=== PATIENT | female | born 1985 | race Caucasian/White ===

== ENCOUNTER → 2019-09-05 10:30 | Outpatient (BNVA) | payer OTHER, SELFPAY | PROVIDERS: Family Provider Family Medicine; PCP Family Medicine; Visit Provider Obstetrics & Gynecology | DX: N93.9 Abnormal uterine and vaginal bleeding, unspecified (principal); Z30.9 Encounter for contraceptive management, unspecified | CPT/HCPCS: 84443 ==

== ENCOUNTER → 2020-02-03 15:32 | Outpatient (BNVA) | payer OTHER, SELFPAY | PROVIDERS: PCP Family Medicine; Visit Provider Family Medicine | DX: Z20.828 Contact with and (suspected) exposure to other viral communicable diseases (principal) | CPT/HCPCS: 85025; 87635 ==

== ENCOUNTER 2020-02-09 10:01 | Observation (INO) | payer OTHER, SELFPAY ==
[2020-02-03 12:23] VITALS: BMI 31.6
--- NOTE | 2020-02-03 12:55 | ANES.PREANE2 ---
Pre-Anesthetic Assessment Pre-Anesthetic Assessment: Height/Weight: Height 1.65 m Weight 86.183 kg Preop Diagnosis: Pelvic pain Proposed Procedure: Operation Date: 02/09/20 07:00 Proposed Procedures p Laparoscopic Assist Vaginal Hystectomy 97908 N94.10(Not Applicable) - Caitlin Olsen MD s Left Laparoscopic Salpingo Oophorectomy(Left) - Caitlin Olsen MD Familial anesthetic complications: None Social: Social History: Tobacco and No alcohol Exam: Pre-Anes Outpt Exam: alert, oriented x 3, clear to auscultation bilaterally and regular rate & rhythm Airway: Cervical ROM: WNL MP: 3 Dentition: Full Pulmonary: Pulmonary: None reported CV/HEM: CV/HEM: HTN Neuropsych: Neuropsych: Depression Anesthetic Plan: ASA status: 2 Anesthesia: General Risk of > 500 ml blood loss (7ml/kg in children): No PFSH Anesthesia PFSH: Medical History Hypertension Diagnosed in 2018 and she has been on lisinopril managed by her primary care provider Dr. Waters Mood changes Controlled on Prozac managed by Dr. Waters. No pertinent past medical history Denies history of: Diabetes, asthma, seizures, DVT/PE. PCP: Dr. Waters Surgical History S/P right oophorectomy (~01/20/19) 01/20/2019---laparoscopic right salpingo-oophorectomy for chronic right lower quadrant pain and dyspareunia.performed by Dr. Coreas at [facility]. No endometriosis or adhesions noted, uterus and bilateral tubes and ovaries appeared normal. -Pathology showed simple cortical cysts and corpus luteum and benign fallopian tube. S/P wisdom tooth extraction (~2003) Status post lumpectomy of both breasts (~06/2018) 06/2018---Bilateral breasts; benign. Performed by Dr. Fontana at the [facility]. Family History Grandfather Hypertension maternal and paternal Colon cancer paternal Diabetes maternal; bone cancer Grandmother Diabetes Paternal great grandmother Hypertension maternal and paternal Breast cancer paternal great grandmother Mother Hypertension Hyperlipidemia Father Hypertension Hyperlipidemia Family/Other Breast cancer Paternal great aunt Other Cancer Denies family history of Cervical cancer Ovarian cancer DVT (deep venous thrombosis) Pulmonary embolism Uterine cancer Stroke Social History Smoking and tobacco status: former smoker Alcohol intake: unknown Female Reproductive History: Date of last menstrual period: 02/03/20 Data Anesthesia CBC & Chem 7: 02/03/20 12:36 Cardiac Studies: No Data to Display
[2020-02-03 12:58] LABS: Basophils # 0.1 10^3/uL (0.0-0.1); Basophils % 0.9 %; Eosinophils # 0.2 10^3/uL (0.0-0.8); Eosinophils % 1.8 %; Hematocrit 43.9 % (37.0-47.0); Hemoglobin 14.4 g/dL (11.5-15.3); Lymphocytes # 3.7 10^3/uL (0.8-4.8); Lymphocytes % 37.3 %; Mean Corpuscular HGB Conc 32.8 g/dL (30.0-36.0); Mean Corpuscular Hemoglobin 32.3 pg (28.0-34.0); Mean Corpuscular Volume 98.4 fL (81-99); Mean Platelet Volume 9.7 fL (7.4-10.4); Monocytes # 0.5 10^3/uL (0.2-0.9); Monocytes % 5.3 %; Neutrophils # 5.42 10^3/uL (1.8-7.7); Neutrophils % 54.3 %; Nucleated Red Blood Cells % 0 %; Platelet Count 395 10^3/cmm (130-400); Red Blood Count 4.46 10^6/uL (4.1-5.3); Red Cell Distribution Width 11.8 % (12.1-15.1)
[2020-02-09] VITALS (25 sets, daily range): BP systolic 76–128; BP diastolic 41–85; PULSE 6–95; RESP 12–25; TEMP 36.5–37.1; O2SAT 88–99
[2020-02-09] MEDS: sodium chloride 0.9% 1,000 ML 30 ML IV ×2 (06:32→10:36)
[2020-02-09 06:48] LABS: OR HCG Qualitative Urine Negative (Negative)
--- NOTE | 2020-02-09 06:56 | P.ANESUD_ITS ---
Pre-Anesthetic Update Pre-Anesthetic Assessment: Date of Surgery/Procedure: 02/09/20 Preop Karina gnosis: Pelvic pain Proposed Procedure: Operation Date: 02/09/20 07:00 Proposed Procedures p Laparoscopic Assist Vaginal Hystectomy 13603 N94.10(Not Applicable) - Caitlin Olsen MD s Laparoscopic Salpingectomy(Left) - Caitlin Olsen MD Any changes to Pre-Anesthetic Assessment?: No Last Intake: Intake Last Liquid Date 02/08/20 Last Liquid Time 23:00 Last Solid Date 02/08/20 Last Solid Time 18:30 Labs Last 48hrs: Laboratory Results - last 48 hr 02/09/20 05:50 Urine HCG, Qual Negative Vitals: Temperature 97.7 F 02/09/20 05:57 Temperature Source Temporal Artery S can 02/09/20 05:57 Pulse Rate 86 02/09/20 05:57 Respiratory Rate 18 02/09/20 05:57 Blood Pressure 109/71 02/09/20 05:57 Blood Pressure Jenniffer n 83 02/09/20 05:57 Pulse Oximetry 94 02/09/20 05:57 Oxygen Delivery Me thod 02/09/20 05:57 Exam: Pre-Anes Outpt Exam: alert, oriented x 3, clear to auscultation bilaterally and regular rate & rhythm Cardiac Studies: No Data to Display
--- NOTE | 2020-02-09 06:57 | P.HPUD_ITS ---
Surgery/Procedure H&P Update DATE OF PROCEDURE: February 09, 2020 DATE H&P PERFORMED: 01/17/20 H&P UPDATE INFORMATION: I have reviewed H&P completed within last 30 days, I have examined patient prior to procedure, No changes to prior documentation and H&P is in [facility] EMR on date indicated PREOP DIAGNOSIS: Pelvic pain, dyspareunia PLANNED PROCEDURE: Operation Date: 02/09/20 07:00 Proposed Procedures p Laparoscopic Assist Vaginal Hystectomy 10066 N94.10(Not Applicable) - Caitlin Olsen MD s Laparoscopic Salpingectomy(Left) - Caitlin Olsen MD
--- NOTE | 2020-02-09 07:50 | SUR.OPER ---
Family Notified Of Patient's Status Via Phone.
[2020-02-09] MEDS: vasopressin 20 unit/mL INJ INJECTION (09:09)
--- NOTE | 2020-02-09 10:01 | P.OP_ITS ---
Operative Report Date of procedure: February 09, 2020 OPERATIVE REPORT Date of surgery:02/09/2020 Date of dictation: 02/09/2020 Preoperative diagnosis: Dyspareunia, chronic pelvic pain Postoperative diagnosis/findings: Normal uterus and normal left tube and ovary, on examination under anesthesia 6-week size anteverted uterus, no adnexal masses, grade 0-1 cystocele uterine prolapse and rectocele. Procedure done: Laparoscopic assisted vaginal hysterectomy, left salpingectomy, cystoscopy Specimens removed/disposition of specimens: Uterus, cervix, left fallopian tube Surgeon: Dr. Caitlin Coreas administrative services assistant: Justine Anesthesia: General endotracheal tube anesthesia Estimated blood loss: 150 ml Intravenous fluids: 1500 mL of LR Urine output: 500 mL of clear urine at the end of procedure Medications: As per anesthesia records Complications: None, patient was extubated and taken to the recovery room in a stable condition PROCEDURE: After consents were obtained, she was taken to the operating room where she was placed under general endotracheal tube anesthesia without any difficulty. She was placed supine on the table in lithotomy position. Her legs were placed in stirrups and care was taken to avoid pressure points. Exam under anesthesia revealed 6-week size anteverted uterus, mobile, no adnexal masses, grade 0-1 ut erine, cystocele and rectocele. She was then prepped and draped in usual sterile fashion. Weighted speculum and anterior wall retractors were placed in the vagina, cervix visualized and grasped with a tenaculum. ZUMI uterine manipulator was placed into the uterus without any difficulty. Gee Catheter was placed, instruments were removed from the vagina and the legs were lowered. Attention was turned towards the abdomen where half percent Marcaine with epinephrine was injected in to her umbilicus. A 10 mm skin incision was made and a 10 mm port was placed through the umbilicus using an open Lipscomb technique. Once intra-abdominal entry was confirmed gas was turned on and intra-abdominal opening pressure was 2. The abdomen is insufflated until the pressure was 13. Survey of the abdomen no injury at site of entry, normal left fallopian tube and ovary and uterus, no obvious lesions identified.. No other gross abnormality were identified. Two 5 mm trocar was placed into the right and left lower quadrant under direct visualization after injecting Marcaine. A 5 mm Voyant was introduced into the abdomen and the left mesosalpinx was clamped, cauterized x3 and then cut. No bleeding was noted. The Voyant was used clamp cauterize and then cut the broad ligament under the fallopian tube and proceeding inferiorly just lateral to the uterus. The ovarian ligament on the left side was also clamped cauterized and cut. Good hemostasis was achieved. The round ligament was also clamped, cauterized and cut. In this way the left fallopian tube left side of the uterus was from the parametria. This was continued to the level just above the cervix. The same procedure was repeated on the right side and the right round ligament, parametria was clamped cauterized and cut the right side of the uterus from the sidewall . Care was taken to identify the ureter and stay away from this. Good hemostasis was noted.The right-side of the uterus was thus freed from the parametria in a similar fashion. The ureters were visualized bilaterally well away from site of surgery. Next the anterior bladder flap was created and the bladder was pushed down. The uterine artery on both sides were visualized, clamped and cauterized. Survey of surgery sites showed hemostasis. At this point all instruments were taken out of the abdomen, gas was turned off, abdomen was covered with a sterile drape and attention was turned towards the vagina. Patient's legs were raised, weighted speculum placed and cervix was grasped on the anterior and posterior lips with single-toothed tenaculum. 4 Units of Pitressin diluted in 10 mL of saline was injected around the cervix for hydrodissection on all sides. A scalpel was used to make an incision starting posteriorly and then extending anteriorly around the cervix. Hanson scissors was then used to separate the overlying tissue from the cervix. The overlying tissue was also pushed back bluntly using a 4 x 4 gauze. Attention was turned p osteriorly where pickups with teeth and Metzenbaum scissors was used to grasp the peritoneum and peritoneal cavity was entered. This peritoneal incision was extended laterally using the Metzenbaum scissors. A long weighted speculum was placed intraperitoneally thus protecting the rectum. Armando-Bynum clamps were used first on the right and then the left to clamp and then cut the paracervical tissue. Then we clamped, cut and sutured both right and left uterosacral ligaments with a Armando clamp. This process was repeated again proceeding up the cervix. The bladder was held up, peritoneum was identified and intraperitoneal entry anteriorly was made. A vaginal retractor was placed into the peritoneum thus protecting the bladder from site of surgery. Care was taken to stay medial and to avoid the bladder. The next bite that was placed clamped and then cut the already cauterized uterine artery on the right and then on the left side. These pedicles were were tied and the stitches were cut. Good hemostasis was achieved. With this, the uterus, bilateral tubes and ovaries, was freed, taken out and sent to pathology. The pedicles in the pelvis was visualized and good hemostasis was noted. The posterior vaginal cuff was noted to be bleeding and was oversewn , attaching the peritoneum to the vaginal cuff with 0 Vicryl in a continuous interlocking fashion. Good hemostasis was achieved. Cystoscopy was performed with a 70? cystoscope and bilateral ureteral jets were visualized x 2 as well as no suture , lesion or defect was noted in the bladder wall or urethra. Cystoscope was removed, bladder drained and Gee catheter was replaced. The angles of the vaginal cuff were grasped with Allis clamps and the angles were held in place. 0 Vicryl was used to close the vaginal cuff in a horizontal fashion using interrupted [id number] sutures. The vaginal cuff was closed and no defects were noted attention was turned to the Vicryl sutures holding the uterosacral ligaments. The sutures were right and left uterosacral ligaments were tied together thus suspending the apex of the vagina. Good support was noted. Attention was turned towards the abdomen at this time and patient's legs were lowered. Abdomen was insufflated to a pressure of 13 and the camera was placed in the abdomen. Sites of surgery were visualized and were noted to be hemostatic. The vaginal cuff was intact and no bowel or omentum was noted to be involved with the vaginal cuff suture line. Surgicel was placed over the vaginal cuff. Good hemostasis was noted. All instruments removed from the abdomen and the abdomen was desufflated. Trochars were removed with the blunt probe in place. The fascia on the umbilicus was closed with 0 Vicryl on a UR needle and good approximation was obtained. The skin incision on all 3 ports was closed with 4-0 Monocryl in a subcuticular fashion. Good reapproximation and hemostasis was noted. Marcaine was injected on the port sites. The incisions were dressed with Steri-Strips, Telfa and Tegaderm. 1 inch vaginal packing with lubrication was placed into the vagina. A Gee catheter was kept in place. The patient was extubated without any difficulty and taken to the recovery room in a stable condition. Pre-op Diagnosis: Pelvic pain, dyspareunia
--- NOTE | 2020-02-09 10:16 | SUR.PHASEI ---
1002 PATIENT TO PACU FROM OR. C/O PAIN 09/10. 3 INCISIONS TO ABDOMEN, CDI. CONTRERAS CATH IN PLACE.
[2020-02-09] MEDS: ondansetron 2 mg/ML SDV 2 mL 4 MG IVP ×4 (10:19→21:09)
[2020-02-09] MEDS: fentaNYL 50 mcg/mL INJ 2mL IVP ×2 (10:24→10:33)
--- NOTE | 2020-02-09 10:40 | PM.PACU ---
PACU note Post-Anesthesia Exam: awake and vital signs stable Disposition: admitted
--- NOTE | 2020-02-09 11:05 | SUR.PHASEI ---
1046 PATIENT TO MED SURG. NAUSEA AND PAIN IMPROVED. 3 INCISIONS TO ABDOMEN, CDI. PATIENT AMBULATORY FROM [facility] TO BED WITH STEADY GAIT. CONTRERAS CATH IN PLACE, DRAINING CLEAR YELLOW URINE.
[2020-02-09] MEDS: HYDROmorphone 1 mg/mL INJ 1 mL IVP ×3 (11:14→20:59)
[2020-02-09] MEDS: simethicone 80 mg Chew PO (11:14)
[2020-02-09] MEDS: dextrose 5%-lactated ringers 1,000 ML 125 ML IV ×2 (11:14→19:16)
[2020-02-09] MEDS: HYDROcodone-acetaminophen 5-325 mg Tablet PO ×2 (12:33→18:41)
--- NOTE | 2020-02-09 13:18 | PC.NURSE ---
I reported the low 02 to the nurse. 2 liters applied
[2020-02-09] MEDS: acetaminophen 325 mg Tablet 650 MG PO (17:43)
[2020-02-09] MEDS: docusate sodium 100 mg Capsule PO (17:43)
--- NOTE | 2020-02-09 19:20 | PC.NURSE ---
SHIFT SUMMARY Patient has done well since received from surgery, vs stable. patient has received iv and po pain medications. hurtado catheter in place and urine output has been approximately 1200 since 1130 am, clear dark yellow in appearance. Dr. Coreas gave telephone orders for patient's vaginal packing to be removed, this nurse removed packing at 1700. pt has ambulated 325ft with staff and has sat up in the chair after surgery. she is resting in bed watching tv at this time, call light within reach.
[2020-02-10] VITALS (7 sets, daily range): BP systolic 101–117; BP diastolic 62–80; PULSE 70–93; RESP 17–20; TEMP 36.6–36.9; O2SAT 92–97
[2020-02-10] MEDS: HYDROcodone-acetaminophen 5-325 mg Tablet PO ×2 (00:36→09:04)
[2020-02-10] MEDS: diphenhydrAMINE 25 mg Capsule PO ×2 (00:41→04:49)
[2020-02-10] MEDS: dextrose 5%-lactated ringers 1,000 ML 125 ML IV ×2 (02:55→09:05)
[2020-02-10] MEDS: ondansetron 2 mg/ML SDV 2 mL 4 MG IVP (03:20)
[2020-02-10] MEDS: HYDROmorphone 1 mg/mL INJ 1 mL IVP (03:20)
--- NOTE | 2020-02-10 06:44 | P.DS_ITS ---
Discharge Providers Date of Admission: 02/09/20 10:01 Date of Discharge: February 10, 2020 Attending Provider at Admission: Caitlin Olsen MD Attending Provider at Discharge: Caitlin Olsen MD Primary Care Provider: Jose Waters MD Reason for Visit Reason for Visit: laparoscopic assisted vaginal hysterectomy with le Hospital Course Discharge Summary: Date of surgery:02/09/2020 Preoperative diagnosis: Dyspareunia, chronic pelvic pain Postoperative diagnosis/findings: Normal uterus and normal left tube and ovary, on examination under anesthesia 6-week size anteverted uterus, no adnexal masses, grade 0-1 cystocele uterine prolapse and rectocele. Procedure done: Laparoscopic assisted vaginal hysterectomy, left salpingectomy, cystoscopy Specimens removed/disposition of specimens: Uterus, cervix, left fallopian tube Hospital course: She underwent an uncomplicated surgery as described above on 02/09/2020. Please refer to operative report for details of surgery.. She did well on postoperative day 0 and was ambulating well, tolerating clear liquid diet. Pain was well- controlled with by mouth and IV pain medication. She denied nausea, vomiting, fever, chills, shortness of breath, leg pain. She had minimal vaginal bleeding. Gee catheter was kept overnight and she had adequate urine output. On postoperative day #1 she continued to do well with stable vital signs and stable hemoglobin at 11.5. Gee catheter was removed and patient was able to void with minimal residual noted on bladder scan. She ambulated well started passing flatus and then tolerated a regular diet. Incisions appear clean dry and intact. She was discharged home on postoperative day #1 in a stable condition. Warning signs for wound infection, cuff infection, DVT/PE were reviewed with her. Post surgical activity restrictions were also reviewed with her at all her questions were answered to her satisfaction. Follow-up in 2 weeks in 6 weeks for postoperative visit. Physical Exam Urinary Catheter Management^: F: Cath Placed During This Visit: yes Urinary Catheter Date of Insertion: 02/09/20 Urinary Catheter Time of Insertion: 07:30 Discharge Data Data Completed and Pending: Pending at discharge Category Date Time Status ES surgery / GI i mages Routine Exams 02/09/20 06:37 Taken Hemagram Timed Lab 02/10/20 04:50 Ordered Pathology: Surgic al [PTH] Routine Pth 10/08/20 09:07 Received Labs from last 24 hours 02/09/20 02/09/20 06:20 05:50 Urine HCG, Qual Negative Blood Type A Positive Rho(D) Type Positive Antibody Screen Negative Vitals: Last Vital Signs Temp 98.4 F 02/10/20 05:20 Pulse 76 02/10/20 05:20 Resp 18 02/10/20 05:20 BP 102/62 02/10/20 05:20 Pulse Ox 92 02/10/20 05:20 Discharge Plan Discharge Patient Disposition: Home Condition: Stable Prescriptions: New ibuprofen 800 mg tablet 800 mg PO Q8H Qty: 30 RF: 0 hydrocodone-acetaminophen 5-325 mg tablet 1 tab PO Q6H Qty: 25 RF: 0 docusate sodium 100 mg Capsule 100 mg PO BID PRN (Reason: constipation) Qty: 30 RF: 0 Continued lisinopril 10 mg tablet 10 mg PO DAILY RF: 0 fluoxetine [Prozac] 40 mg capsule 40 mg PO DAILY RF: 0 Discontinued ibuprofen 800 mg tablet 800 mg PO Q8H PRN (Reason: Pain) RF: 0 Discharge Orders: Discharge Order (Routine); Ordered 02/10/20 Ordered By: Caitlin Olsen Referrals: Caitlin Olsen MD [Physician] - (2 and 6 week post op---pt has appointments already) Patient Instructions: Hydrocodone/Acetaminophen (By mouth), Ibuprofen (By mouth), Laxative, Stool Softeners (By mouth), OB Discharge Report, OB Laproscopic Surgery - [facility], OB Food/Drug Interaction Guide Activity Restrictions/Additional Instructions: pelvic rest for 6 weeks- no heavy lifting for 6 weeks Discharge Date/Time: 02/10/20 19:55 Discharge Attestations Time Spent in Discharge Care*: greater than 30 min Quality Metrics Clinical Quality Measures During this hospital stay, did patient experience: None Coding Level of Care Code Acute Client Experience Administrator for Alvin Foley
[2020-02-10 07:54] LABS: Hematocrit 37.9 % (37.0-47.0); Hemoglobin 12.1 g/dL (11.5-15.3); Mean Corpuscular HGB Conc 31.9 g/dL (30.0-36.0); Mean Corpuscular Hemoglobin 32.2 pg (28.0-34.0); Mean Corpuscular Volume 100.8 fL (81-99); Mean Platelet Volume 9.8 fL (7.4-10.4); Platelet Count 275 10^3/cmm (130-400); Red Blood Count 3.76 10^6/uL (4.1-5.3); Red Cell Distribution Width 11.9 % (12.1-15.1); White Blood Count 16.5 10^3/uL (4.0-10.0)
[2020-02-10] MEDS: docusate sodium 100 mg Capsule PO ×2 (09:05→16:17)
--- NOTE | 2020-02-10 09:07 | PC.NURSE ---
patient ambulated in halls. made 4 laps around nurses station. Patient states pain is a 7/10. gave2 hydro
--- NOTE | 2020-02-10 10:50 | PC.NURSE ---
0735 - 1st void on AM shift - 400ml - bladder scan shows less that 50ml, 1030am 2nd void 300ml bladder scan shows less than 60ml. Dr. Coreas notified and states patient passes post void. SMW, BUSINESS SUPPORT COORDINATOR
[2020-02-10] MEDS: ibuprofen 800 mg tablet PO ×2 (11:13→19:02)
--- NOTE | 2020-02-10 11:34 | PC.NURSE ---
Patient ambulating in hallway. Has made a total of 12 laps thus far and is still ambulating. Positive bowel sounds assculated but patient reports no gas yet. SMW, BUFFER AUTOMATIC
--- NOTE | 2020-02-10 13:56 | PC.NURSE ---
Patient ambulating in [place] at this time. COURTNEYW, SAND PLANT ATTENDANT
[2020-02-10] MEDS: HYDROcodone-acetaminophen 5-325 mg Tablet 1 TAB PO (14:57)
--- NOTE | 2020-02-10 14:58 | PC.CHAP ---
Pastoral Care Encounter/Spiritual Assessment Type of Contact [] Declined washroom operator visit [] Patient/Family/Request visit [] Outpatient visit [] Follow-up visit [] Physician referral [] Code/Alert [] Routine visit [] Staff referral [] Actively dying [] Patient sleeping [] Family support [] [x] Out of room [] Palliative care [] [] Receiving care in room [] Pre-surgical visit [] Trauma [] Long length of stay [] ICU visit [] Other: Relational/Emotional Strength [] Patient feels connected with others/family/visitors/staff [] Distress [] Loneliness/isolation [] Abandonment Spirituality of Patient [] Person of Miya [] Attends Anglican of their Miya [] Believes in Prayer [] Reads Bible or Buddhist materials [] There are Spiritual issues to be addressed Watch Dial Stoner Interventions [] Prayer [] Active listening [] Non-anxious presence [] Spiritual/emotional support [] Crisis/trauma care [] Spiritual counseling [] Bereavement support [] Provided bereavement packet [] Provided Bible/devotional materials [] Provided toy/stuffed animal, coloring book to patient or family member [] Provided Communion [] Anointing/[place] [] Salvation [] Completed spiritual assessment [] Other: Impact on Illness or Injury [] Angry [] Fearful [] Anxious [] Often cries [] Exhaustion [] Unable to work [] Unable to attend moravian [] Unable to walk/stand [] Unable to read [] Unable to drive [] Unable to eat/drink [] Unable to sleep [] Unable to be with family [] Patient intubated [] Other: Summary Patient was not in the room at the time of the washroom operator visit. Patient visit was attempted by Watch Dial Stoner Coy Canseco. Time spent with patient 3 minutes
== END 2020-02-10 19:55 | disposition home or self-care (01) ==
LOC: MEDSURG 10:02 → OBGYN 02-10 17:26
PROVIDERS: Anesthesiology; Admitting Provider Obstetrics & Gynecology; PCP Family Medicine; Visit Provider Obstetrics & Gynecology
PROC: 0UT9FZZ Resection of Uterus, Via Natural or Artificial Opening With Percutaneous Endoscopic Assistance (ICD-10-PCS; CPT 58552; principal; 2020-02-09 07:00)
PROC: (CPT 58661; 2020-02-09 07:00)
DX: R10.2 Pelvic and perineal pain (principal); G89.29 Other chronic pain; N94.10 Unspecified dyspareunia; I10 Essential (primary) hypertension; F17.210 Nicotine dependence, cigarettes, uncomplicated
CPT/HCPCS: 58552; 12345; 36415; 81025; 84703; 85027; 86850; 86900; 88307; 96361; 96365; 96375; G0378; J0131; J0690; J1100; J1170; J2370; J2405; J2704; J2710; J3010; J3490; J7030

== ENCOUNTER 2022-09-14 06:57 | Emergency (ER) | payer OTHER, SELFPAY ==
[2022-09-14 07:05] VITALS: BP 144/115; PULSE 123; RESP 17; TEMP 36.6; O2SAT 95; BMI 33.3
--- NOTE | 2022-09-14 07:13 | ED_ITS ---
HPI - Nausea/Vomiting/Diarrhea General: Chief complaint: Nausea/Vomiting/Diarrhea Stated complaint: n/v Time Seen by Provider: 09/14/22 07:03 Source: patient Mode of arrival: ambulatory Limitations: no limitations History of Present Illness: Patient presents to the emergency department today accompanied by her mother for evaluation treatment of epigastric abdominal pain, diarrhea, and vomiting. Antoinette ent reports being woken out of her sleep at approximately 10 PM last night. She states since that time she has had near consistent watery diarrhea, abdominal cramping with epigastric pain, and vomiting. Patient states she is feeling extremely thirsty but, reports any p.o. intake results in both diarrhea and vomiting. Patient has not recorded fever at home but has had some chills through the night. She denies dysuria or back pain. She denies any recent illness of cough, congestion, or sore throat. She does indicates she had a tick bite several days ago and, has a history of [place] spotted fever several years ago with resulting alpha-gal. Her mother also mentions that the patient has been hospitalized in the past for urosepsis without urinary symptoms present. Patient denies any change in her diet or new foods yesterday evening. No others around her similarly ill to her knowledge. Review of Systems General: Reports: 10 or more systems reviewed and unremarkable except in HPI and below PFSH ED PFSH: Medical History Hypertension Diagnosed in 2018 and she has been on lisinopril managed by her primary care provider Dr. Waters Mood changes Controlled on Prozac managed by Dr. Waters. No pertinent past medical history Denies history of: Diabetes, asthma, seizures, DVT/PE. PCP: Dr. Waters Surgical History S/P right oophorectomy (~01/20/19) 01/20/2019---laparoscopic right salpingo-oophorectomy for chronic right lower quadrant pain and dyspareunia.per[place] by [place]. Coreas [place] [facility] [place] No endometriosis or adhesions noted, uterus and bilateral tubes and ovaries appeared normal. -Pathology showed simple cortical cysts and corpus luteum and benign fallopian tube. S/P vaginal hysterectomy 02/09/2020---laparoscopic assisted vaginal hysterectomy, left salpingectomy, cystoscopy For dyspareunia performed by Dr. Coreas at [facility] [place]. -Pathology showed inactive benign endometrium, myometrium with leiomyoma and adenomyosis, ectocervix with HPV changes and atypical glandular cells noted at transformation zone without adenocarcinoma. Benign left fallopian tube S/P wisdom tooth extraction (~2003) Status post lumpectomy of both breasts (~06/2018) 06/2018---Bilateral breasts; benign. Performed by Dr. Fontana at the [facility]. Family History Grandfather Hypertension maternal and paternal Colon cancer paternal, diagnosed in his late 60s or early 70s Diabetes maternal Sarcoma maternal Grandmother Diabetes Paternal great grandmother Hypertension maternal and paternal Breast cancer paternal, diagnosed in her 60s Mother Hypertension Hyperlipidemia Father Hypertension Hyperlipidemia Family/Other Breast cancer Paternal great aunt paternal great grandmother Denies family history of Cervical cancer Ovarian cancer DVT (deep venous thrombosis) Pulmonary embolism Uterine cancer Stroke Social History (Updated 11/22/21 @ 13:20 by Caitlin Olsen MD) Substance/Drug Use: never Physical Exam Const: COMMON NORMALS: patient oriented x3 and alert; apparent distress (Patient appears ill but, is able to sit upright and provide her own history) HENMT: COMMON NORMALS: normocephalic, atraumatic, hearing grossly normal bilaterally and moist oral mucous membranes HEAD & SCALP: normocephalic and atraumatic Eye: COMMON NORMALS: Equal, round and reactive pupils present, EOMs intact bilaterally and conjunctivae normal CONJUNCTIVA: Yes conjunctivae normal PUPIL: Yes Equal, round and reactive pupils present Neck/C-Spine: COMMON NORMALS: full ROM and no JVD Lymph: LYMPHATIC: no lymphadenopathy noted Resp: COMMON NORMALS: normal respiratory effort, No retractions, No use of accessory muscles and clear to auscultation bilaterally AUSCULTATION: clear to auscultation bilaterally Cardio: COMMON NORMALS: no JVD and regular rhythm RATE: tachycardic RHYTHM: regular rhythm GI: OTHER: Patient with tenderness on palpation in her epigastric region. Abdomen is still soft and there is no guarding. : COMMON NORMALS: Yes no CVA tenderness BLADDER/KIDNEY EXAM: Yes no CVA tenderness Back/Pelvis: COMMON NORMALS: no CVA tenderness, no thoracic nor lumbar tenderness and thoraco-lumbar ROM normal Extremity: COMMON NORMALS: normal to inspection, full ROM and capillary refill normal Neuro: COMMON NORMALS: patient oriented x3 SENSORIUM/ORIENTATION: Yes alert Psych: COMMON NORMALS: mental status grossly normal, Normal thought process present, cooperative, normal affect and activity/motor behavior normal THOUGHT PROCESS: Normal thought process present Skin: COMMON NORMALS: no rashes or lesions noted and no wounds GENERAL SKIN EXAM: no rashes or lesions noted Course Vital Signs: Vital signs: Vital Signs Temperature 97.8 F 09/14/22 07:05 Pulse Rate 111 H 09/14/22 11:38 Respiratory Rate 17 09/14/22 07:05 Blood Pressure 140/84 09/14/22 11:38 Pulse Oximetry 95 09/14/22 11:38 Oxygen Delivery Me thod Room Air 09/14/22 11:38 MDM - Nausea/Vomiting/Diarrhea Medical Decision Making Patient presents to the emergency department today for complaints of epigastric abdominal pain, subjective fevers, vomiting, and diarrhea. Patient has not had any vomiting since receiving antinausea medication here in the emergency department but has had a couple episodes of diarrhea. Patient received 2 L of fluid. She does look remarkably improved at discharge. Lab work did show an elevated white blood cell count which did lead us to proceed on with a CT exam however, CT was negative for any acute concerns for pancreatic inflammation, bowel inflammation, etc. Patient's urinalysis does have 2+ bacteria but does show contamination. While this is a somewhat soft finding for UTI, patient does have a history of urosepsis without any urinary symptoms. Patient was given a gram of Rocephin here in the emergency department for treatment and will treat outpatient with continued antibiotics. Patient will be treated with Cipro given her significant history and, to also give some GI coverage just in case. She was given antinausea medication to better tolerate her fluids over the next c ouple of days. Patient received Reglan prior to discharge as well as some Bentyl. There is a notification about potential interaction with alpha gal and Bentyl however, I did discuss with Dr. Chowdhury who indicated no known association for which to be concerned. Patient was given strict return precautions. I did encourage a follow-up appointment with her primary care doctor for recheck of her u rinalysis. I also requested a urine culture on her specimen be performed for further evaluation of her urine. Differential Diagnosis Likely traveler's diarrhea, gastroenteritis and dehydration (UTI, pyelonephritis, sepsis, pancreatitis) Lab Data 09/14/22 07:25 09/14/22 07:25 Radiology Impressions Abdomen/Pelvis CT 09/14/22 08:28 IMPRESSION: 1. No acute abdominopelvic abnormality identified. 2. Colonic diverticulosis without signs of acute diverticulitis. Laboratory Results WBC 17.3 10^3/uL (4.0-10.0) H 09/14/22 07:25 RBC 4.73 10^6/uL (4.1-5.3) 09/14/22 07:25 Hgb 15.2 g/dL (11.5-15.3) 09/14/22 07:25 Hct 46.5 % (37.0-47.0) 09/14/22 07:25 MCV 98.3 fl (81-99) 09/14/22 07:25 MCH 32.1 pg (28.0-34.0) 09/14/22 07:25 MCHC 32.7 g/dL (30.0-36.0) 09/14/22 07:25 RDW 12.4 % (12.1-15.1) 09/14/22 07:25 Plt Count 357 10^3/cmm (130-400) 09/14/22 07:25 MPV 9.6 fL (7.4-10.4) 09/14/22 07:25 Neut % (Auto) 93.8 % 09/14/22 07:25 Lymph % (Auto) 2.8 % 09/14/22 07:25 [place] % (Auto) 2.6 % 09/14/22 07:25 Eos % (Auto) 0.3 % 09/14/22 07:25 Baso % (Auto) 0.3 % 09/14/22 07:25 Neut # (Auto) 16.20 10^3/uL (1.8-7.7) H 09/14/22 07:25 Lymph # (Auto) 0.5 10^3/uL (0.8-4.8) L 09/14/22 07:25 [place] # (Auto) 0.5 10^3/uL (0.2-0.9) 09/14/22 07:25 Eos # (Auto) 0.1 10^3/uL (0.0-0.8) 09/14/22 07:25 Baso # (Auto) 0.1 10^3/uL (0.0-0.1) 09/14/22 07:25 Nucleated RBC % (auto) 0 % 09/14/22 07:25 Nucleated RBCs # 0.0 /100WBC 09/14/22 07:25 ESR 41 mm/hr (0-15) H 09/14/22 07:25 Sodium 137 mmol/L (136-145) 09/14/22 07:25 Potassium 5.2 mmol/L (3.5-5.1) H 09/14/22 07:25 Chloride 99 mmol/L (98-107) 09/14/22 07:25 Carbon Dioxide 17 mmol/L (22-29) L 09/14/22 07:25 Anion Gap 26.2 (5-19) H 09/14/22 07:25 BUN 13 mg/dL (6-20) 09/14/22 07:25 Creatinine 0.8 mg/dL (0.5-0.9) 09/14/22 07:25 GFR Calculation 79.9 mL/min (90-130) L 09/14/22 07:25 Glucose 135 mg/dL (65-115) H 09/14/22 07:25 Calculated Osmolality 286 mOsm/kg (285-295) 09/14/22 07:25 Calcium 9.2 mg/dL (8.5-10.5) 09/14/22 07:25 Total Bilirubin 0.8 mg/dL (0.15-1.2) 09/14/22 07:25 AST 18 U/L (0-32) 09/14/22 07:25 ALT 28 U/L (0-33) 09/14/22 07:25 Alkaline Phosphatase 125 U/L (35-105) H 09/14/22 07:25 C-Reactive Protein 15.5 mg/L (0.0-4.9) H 09/14/22 07:25 Total Protein 7.8 g/dL (6.6-8.7) 09/14/22 07:25 Albumin 4.3 g/dL (3.5-5.2) 09/14/22 07:25 Globulin 3.5 g/dL (1.3-4.6) 09/14/22 07:25 Lipase 16 U/L (13-60) 09/14/22 07:25 Urine Color Dark yellow (Yellow) 09/14/22 08:35 Urine Appearance Cloudy (CLEAR) A 09/14/22 08:35 Urine pH 5 (5-7) 09/14/22 08:35 Ur Specific [place] 1.020 (1.005-1.030) 09/14/22 08:35 Urine Protein Neg (Negative) 09/14/22 08:35 Urine Glucose (UA) Norm (Normal) 09/14/22 08:35 Urine Ketones 1+ (Negative) H 09/14/22 08:35 Urine Blood 3+ (Negative) H 09/14/22 08:35 Urine Nitrate Negative (Negative) 09/14/22 08:35 Urine Bilirubin Neg (Negative) 09/14/22 08:35 Urine Urobilinogen Norm mg/dL (Negative) 09/14/22 08:35 Ur Leukocyte Esterase Negative (Negative) 09/14/22 08:35 Urine RBC 5-10 /hpf (0-2) H 09/14/22 08:35 Urine WBC None /hpf (0-5) 09/14/22 08:35 Ur Squamous Epith Cells 10-15 /hpf (0-5) H 09/14/22 08:35 Ur Transition Epith Cell 0-4 /hpf 09/14/22 08:35 Amorphous Sediment Not Reportable 09/14/22 08:35 Urine Bacteria 2+ /hpf (NONE) H 09/14/22 08:35 Urine Mucus 2+ /hpf 09/14/22 08:35 Discharge Plan Discharge Patient Disposition: Home Clinical Impression: Acute epigastric pain, Vomiting, UTI (urinary tract infection) Condition: Stable Prescriptions: New ondansetron 4 mg tablet,disintegrating 4 mg PO Q8H 5 Days Qty: 15 0RF ciprofloxacin HCl 500 mg tablet 500 mg PO BID Qty: 14 0RF No Action Zyrtec 10 mg capsule 10 mg PO DAILY lisinopril 10 mg tablet 10 mg PO DAILY fluoxetine [Prozac] 40 mg capsule 40 mg PO DAILY ibuprofen 800 mg tablet 800 mg PO Q8H PRN (Reason: pain (scale score 1-3)) Qty: 30 1RF Allergy Shots SUBCUT .weekly Discharge Orders: Discharge ED (Routine); Ordered 09/14/22 Ordered By: Martina Santamaria Referrals: Jose Waters MD [Primary Care Provider] - Discharge Diet: Advance as tolerated Discharge Activity: Increase activity as tolerated Patient Instructions: Urinary Tract Infection in Women (ED), Abdominal Pain (ED) Activity Restrictions/Additional Instructions: Imaging of your abdomen showed no signs of any acute GI concerns. However, you do have some findings of bacteria in your urine but, is not an obvious specimen indicating urinary tract infection slowly causing all of your symptoms today. However, with the lack of other findings and your known history of a progressing urinary tract infection without any known symptoms, we will proceed on with treatment of the UTI. You received your first round of antibiotics here in the emergency department and a prescription has been provided to you to continue treatment. I have also given you antinausea medication as will be extremely important that you continue to stay well-hydrated. I have requested a urine culture be performed over the next 48 hours to isolate any bacteria to further determine infectious cause and to assure proper treatment with antibiotic. Continue to monitor your symptoms. We recommend follow-up after course of antibiotics is complete to assure full resolution of any urinary findings or, returning back to the emergency department for any acute worsening. Coding Level of Care Code ED Business Teacher for Alvin Foley
[2022-09-14 07:37] LABS: Basophils # 0.1 10^3/uL (0.0-0.1); Basophils % 0.3 %; Eosinophils # 0.1 10^3/uL (0.0-0.8); Eosinophils % 0.3 %; Hematocrit 46.5 % (37.0-47.0); Hemoglobin 15.2 g/dL (11.5-15.3); Lymphocytes # 0.5 10^3/uL (0.8-4.8); Lymphocytes % 2.8 %; Mean Corpuscular HGB Conc 32.7 g/dL (30.0-36.0); Mean Corpuscular Hemoglobin 32.1 pg (28.0-34.0); Mean Corpuscular Volume 98.3 fl (81-99); Mean Platelet Volume 9.6 fL (7.4-10.4); Monocytes # 0.5 10^3/uL (0.2-0.9); Monocytes % 2.6 %; Neutrophils % 93.8 %; Nucleated Red Blood Cells % 0 %; Platelet Count 357 10^3/cmm (130-400); Red Blood Count 4.73 10^6/uL (4.1-5.3); Red Cell Distribution Width 12.4 % (12.1-15.1); White Blood Count 17.3 10^3/uL (4.0-10.0)
[2022-09-14] MEDS: ondansetron 2 mg/ML SDV 2 mL 4 MG IVP (07:37)
[2022-09-14] MEDS: sodium chloride 0.9% 1,000 ML 999 ML IV ×2 (07:37→09:47)
[2022-09-14 07:41] VITALS: BP 141/100; PULSE 109; O2SAT 96
[2022-09-14 07:49] LABS: Erythrocyte Sedimentation Rate 41 mm/hr (0-15)
[2022-09-14 07:53] LABS: C Reactive Protein 15.5 mg/L (0.0-4.9); Chloride 99 mmol/L (98-107); Potassium 5.2 mmol/L (3.5-5.1); Sodium 137 mmol/L (136-145)
[2022-09-14 08:15] LABS: Alanine Aminotransferase 28 U/L (0-33); Albumin Level 4.3 g/dL (3.5-5.2); Alkaline Phosphatase 125 U/L (35-105); Anion Gap 26.2 (5-19); Aspartate Amino Transferase 18 U/L (0-32); Blood Urea Nitrogen 13 mg/dL (6-20); Calcium 9.2 mg/dL (8.5-10.5); Carbon Dioxide 17 mmol/L (22-29); Creatinine Clr Calc Pharmacy 105.0577; Globulin 3.5 g/dL (1.3-4.6); Glomerular Filtration Rate 79.9 mL/min (90-130); Glucose 135 mg/dL (65-115); Lipase 16 U/L (13-60); Osmolality Calculated 286 mOsm/kg (285-295); Total Bilirubin 0.8 mg/dL (0.15-1.2); Total Protein 7.8 g/dL (6.6-8.7)
--- NOTE | 2022-09-14 08:28 | CTR_ITS ---
PROCEDURE INFORMATION: Exam: CT Abdomen And Pelvis With Contrast Exam date and time: 09/14/2022 8:53 AM Age: 37 years old Clinical indication: Abdominal tenderness and nausea and vomiting and other: Diarrhea; Prior surgery; Surgery date: 6+ months; Surgery type: Hyster; Additional info: Epigastric pain, wbc 17+, n/v/d, lipase wnl TECHNIQUE: Imaging protocol: Computed tomography of the abdomen and pelvis with contrast. Radiation optimization: All CT scans at this facility use at least one of these dose optimization techniques: automated exposure control; mA and/or kV adjustment per patient size (includes targeted exams where dose is matched to clinical indication); or iterative reconstruction. Contrast material: OMNI 350; Contrast volume: 100 ml; Contrast route: INTRAVENOUS (IV); REPORTING DATA: Count of CT and Cardiac NM exams in prior 12 months: This patient has received 0 known CTs and 0 known cardiac nuclear medicine studies in the 12 months prior to the current study. COMPARISON: CT abdomen pelvis w con* [id number] 05/24/2016 3:04 PM RADIATION DOSE METRICS: Total DLP (mGy-cm): 938.96 FINDINGS: Liver: The liver is normal in size and contour. Gallbladder and bile ducts: The gallbladder appears unremarkable. No intra- or extra-hepatic biliary ductal dilatation. Pancreas: The pancreas appears normal. Spleen: The spleen appears normal. Adrenal glands: The adrenals appear normal. Kidneys and ureters: The kidneys enhance symmetrically and empty into non-dilated ureters. Stomach and bowel: The stomach appears unremarkable. The small bowel loops are not abnormally dilated. The large bowel loops are not abnormally dilated. Colonic diverticulosis without signs of acute diverticulitis. Appendix: The appendix appears normal. Intraperitoneal space: No ascites or significant fluid collection. Vasculature: The aorta is nonaneurysmal. The IVC appears normal. Lymph nodes: There are no enlarged lymph nodes. Urinary bladder: The urinary bladder is not well distended, therefore not well evaluated. Reproductive: Oval-shaped fluid density cyst in the left ovary measuring 4.3 x 2.5 x 3.1 cm. No surrounding inflammatory changes or fluid identified. The uterus is surgically absent. Bones/joints: Unremarkable. Soft tissues: Unremarkable. CT/CT abdomen pelvis w con* [id number] IMPRESSION: 1. No acute abdominopelvic abnormality identified. 2. Colonic diverticulosis without signs of acute diverticulitis.
[2022-09-14] MEDS: fentaNYL 50 mcg/mL INJ 2mL 25 MCG IVP (08:37)
[2022-09-14 08:41] VITALS: BP 125/88; PULSE 109; O2SAT 97
[2022-09-14] MEDS: iohexol 350 mg/mL 500 mL Btl (per mL) IV (08:58)
[2022-09-14 09:02] LABS: Add Urine Microscopic? YES; Bilirubin Urine Neg (Negative); Blood Urine 3+ (Negative); Glucose Urine UA Norm (Normal); Ketones Urine 1+ (Negative); Leukocyte Esterase Urine Negative (Negative); Nitrate Urine Negative (Negative); Protein Urine Neg (Negative); Urine Appearance Cloudy (CLEAR); Urine Color Dark Yellow (Yellow); Urobilinogen Urine Norm (Negative); pH Urine 5 (5-7)
[2022-09-14 09:05] LABS: Bacteria Urine 2+ /hpf; Mucus Urine 2+ /hpf; Transitional Epi Cells Urine 0-4 /hpf
[2022-09-14 09:06] LABS: Add Urine Culture? No
[2022-09-14 09:30] VITALS: BP 126/85; PULSE 106; O2SAT 98
[2022-09-14] MEDS: cefTRIAXone 1,000 MG in sodium chloride 0.9% (plus) 50 ML 100 MG IV (10:07)
[2022-09-14 10:30] VITALS: BP 133/94; PULSE 112; O2SAT 99
[2022-09-14] MEDS: dicyclomine 20 mg Tablet PO (10:41)
[2022-09-14] MEDS: metoclopramide 5 mg/mL SDV 2 mL 10 MG IVP (11:36)
[2022-09-14 11:38] VITALS: BP 140/84; PULSE 111; O2SAT 95
== END 2022-09-14 12:12 | disposition home or self-care (01) ==
PROVIDERS: Emergency Provider Physician Assistant; PCP Family Medicine
DX: R10.13 Epigastric pain (principal); N39.0 Urinary tract infection, site not specified; R11.11 Vomiting without nausea; K57.30 Diverticulosis of large intestine without perforation or abscess without bleeding; I10 Essential (primary) hypertension
CPT/HCPCS: 74177; 80053; 81001; 83690; 85025; 85651; 86140; 87086; 96361; 96365; 96375; 99284; 99285; J0696; J2405; J2765; J3010; J7030; Q9967

== ENCOUNTER 2023-12-08 08:10 | Observation (INO) | payer OTHER, SELFPAY ==
[2023-12-08] VITALS (9 sets, daily range): BP systolic 131–173; BP diastolic 86–119; PULSE 79–104; RESP 17; TEMP 36.6–36.9; O2SAT 92–100; BMI 33.5
[2023-12-08] MEDS: sodium chloride 0.9% 1,000 ML 999 ML IV (08:44)
[2023-12-08] MEDS: ondansetron 2 mg/ML SDV 2 mL 4 MG IVP ×3 (08:47→20:20)
[2023-12-08] MEDS: morphine 4 mg/mL SDV 1 mL IVP ×3 (08:50→12:29)
--- NOTE | 2023-12-08 08:52 | CT_ITS ---
WS: [id number] CT ABDOMEN AND PELVIS WITH CONTRAST HISTORY: abd pain TECHNIQUE: Imaging performed of the abdomen and pelvis with IV contrast. Single phase imaging of the abdomen. Coronal and sagittal reformats are submitted. All CT scans at [facility] use at [address] one of these dose optimization techniques: automated exposure control; mA and/or kV adjustment per patient size (includes targeted exams where dose is matched to clinical indication); or iterative re construction. IV CONTRAST: Omnipaque 350; 100 mL IV. Oral contrast: No DLP: 913.78 mGy.cm COMPARISON: 09/14/2022 Lower thorax: Lung bases are clear. Heart is normal size. No hiatal hernia. Liver/biliary system: Normal size with no intrahepatic dilatation. Gallbladder: Normally distended gallbladder. Small stones within the gallbladder. No wall enhancement . Pancreas: Normal size pancreas and pancreatic duct. No adjacent inflammation. Spleen: Normal size spleen. No mass or infarct. Adrenal glands: Normal. Right kidney: Minimal focal scarring superior pole. No obstruction. Left kidney: Normal. Aorta: Mild atherosclerosis with no aneurysm. Lymphadenopathy: None. Free fluid: None. GI tract: No obstruction. Normal appendix. Mild distal colonic diverticular burden. No acute divertic ulitis. Abdominal wall: Unremarkable abdominal wall. No hernia. Pelvis: Prior hysterectomy. No free fluid. LEFT ovary is present and contains a small follicle. Bones: Unremarkable. CT/CT abdomen pelvis w con* [id number] IMPRESSION: 1. Cholelithiasis. Stones are recently described also by ultrasound. No defini te wall thickening or enhancement. 2. No common bile duct obstruction. 3. No renal obstruction. 4. Normal appendix. 5. Mild distal colonic diverticular burden. No acute diverticulitis.
--- NOTE | 2023-12-08 08:52 | US_ITS ---
WS: [id number] RIGHT UPPER QUADRANT ULTRASOUND HISTORY: ruq pain COMPARISON: 04/23/2015 Liver: 20.0 cm in length. Moderately enlarged liver with hepatic steatosis. No mass. Portal Vein: Normal hepatopetal flow with monophasic waveform. Gallbladder: Normally distended gallbladder. No hydrops. Several stones are noted in the gallbladder. No wall thickening. CBD: 0.5 cm Pancreas: Normal size and echogenicity. Right kidney: 10.4 cm in length. Normal size and echogenicity. No hydronephrosis or mass. Aorta and IVC: Unremarkable abdominal aorta and IVC. No ascites. US/US gall bladder [id number] IMPRESSION: 1. Numerous stones are noted within the gallbladder extending into the gallbla dder neck. 2. No common bile duct obstruction.
--- NOTE | 2023-12-08 08:56 | ED_ITS ---
HPI - Abdominal Pain 2 General: Chief Complaint: Abdominal Pain Stated Complaint: abd pain, N/V Time Seen by Provider: 12/08/23 08:38 History of Present Illness: 38-year-old female presents to the emerg ency room with right upper quadrant abdominal pain radiating into the right side of his back. She has had bilious vomiting. She denies dysuria urgency or frequency no fever. She has had similar pain but not as intense as this in the past. She thinks maybe over the last couple of months she has had other episodes. She has not noticed anything that aggravates or relieves it. Associated Symptoms: Reports nausea and vomiting; Denies chills, dysuria, fever(s), hematochezia, hematemesis and melena Review of Systems 2 Const: Denies: fever(s) or chills Card: Denies: chest pain Resp: Denies: dyspnea GI: Reports: abdominal pain, nausea and vomiting; Denies: hematemesis, hematochezia or melena : Denies: dysuria, urinary frequency or urinary urgency Musc: Denies: neck pain or back pain Skin/Breast: Denies: rash PFSH ED 2 PFSH: Medical History Mood changes Controlled on Prozac managed by Dr. Waters. Hypertension Diagnosed in 2018 and she has been on lisinopril managed by her primary care provider Dr. Waters No pertinent past medical history Denies history of: Diabetes, asthma, seizures, DVT/PE. PCP: Dr. Waters Surgical History S/P vaginal hysterectomy 02/09/2020---laparoscopic assisted vaginal hysterectomy, left salpingectomy, cystoscopy For dyspareunia performed by Dr. Coreas at [facility] [place]. -Pathology showed inactive benign endometrium, myometrium with leiomyoma and adenomyosis, ectocervix with HPV changes and atypical glandular cells noted at transformation zone without adenocarcinoma. Benign left fallopian tube S/P right oophorectomy (~01/20/19) 01/20/2019---laparoscopic right salpingo-oophorectomy for chronic right lower quadrant pain and dyspareunia.performed by Dr. Coreas at [facility] [place]. No endometriosis or adhesions noted, uterus and bilateral tubes and ovaries appeared normal. -Pathology showed simple cortical cysts and corpus luteum and benign fallopian tube. Status post lumpectomy of both breasts (~06/2018) 06/2018---Bilateral breasts; benign. Performed by Dr. Fontana at the [facility]. S/P wisdom tooth extraction (~2003) Family History Grandfather Hypertension maternal and paternal Colon cancer paternal, diagnosed in his late 60s or early 70s Diabetes maternal Sarcoma maternal Grandmother Diabetes Paternal great grandmother Hypertension maternal and paternal Breast cancer paternal, diagnosed in her 60s Mother Hypertension Hyperlipidemia Father Hypertension Hyperlipidemia Family/Other Breast cancer Paternal great aunt paternal great grandmother Denies family history of Cervical cancer Ovarian cancer DVT (deep venous thrombosis) Pulmonary embolism Uterine cancer Stroke Social History Substance/Drug Use: never Physical Exam 2 Const: GENERAL APPEARANCE: cooperative ORIENTATION/CONSCIOUSNESS: Yes awake, Yes oriented to person, Yes oriented to place and Yes oriented to time HENMT: COMMON NORMALS: normocephalic, atraumatic and hearing grossly normal bilaterally HEAD & SCALP: normocephalic and atraumatic Resp: COMMON NORMALS: normal respiratory effort, No retractions, No use of accessory muscles and clear to auscultation bilaterally AUSCULTATION: clear to auscultation bilaterally Cardio: COMMON NORMALS: regular rate, regular rhythm and No murmurs present (Cardio) RATE: regular rate RHYTHM: regular rhythm GI: COMMON NORMALS: Soft to palpation and No hepatosplenomegaly present A USCULTATION: Yes normoactive bowel sounds PALPATION: Yes Soft to palpation, No Tenderness to palpation present (GI), No Guarding due to palpation present (GI) and Yes No hepatosplenomegaly present Extremity: COMMON NORMALS: normal to inspection, capillary refill normal, no clubbing, cyanosis or edema, no calf tenderness and no pedal edema Neuro: SENSORIUM/ORIENTATION: Yes oriented to person, Yes oriented to place and Yes oriented to time Skin: COMMON NORMALS: no rashes or lesions noted GENERAL SKIN EXAM: no rashes or lesions noted Course 2 Vital Signs: Vital signs: Vital Signs Temperature 98.1 F 12/08/23 08:16 Pulse Rate 92 12/08/23 08:38 Blood Pressure 154/103 12/08/23 08:38 Pulse Oximetry 100 12/08/23 08:38 Oxygen Delivery Me thod Room Air 12/08/23 08:38 MDM - Abdominal Pain Medical Decision Making Cholelithiasis mild leukocytosis. Does not have biliary colic with exam finding of Porras sign. Discussed Dr. Douglas he will admit to his service orders written. Medical Records I reviewed the patient's medical records. Lab Data I reviewed the patient's lab results. 12/08/23 08:25 12/08/23 08:25 Labs/Radiology: Radiology Impressions Abdomen/Pelvis CT 12/08/23 08:52 IMPRESSION: 1. Cholelithiasis. Stones are recently described also by ultrasound. No definite wall thickening or enhancement. 2. No common bile duct obstruction. 3. No renal obstruction. 4. Normal appendix. 5. Mild distal colonic diverticular burden. No acute diverticulitis. Gallbladder Ultrasound 12/08/23 08:52 IMPRESSION: 1. Numerous stones are noted within the gallbladder extending into the gallbladder neck. 2. No common bile duct obstruction. Laboratory Results WBC 13.36 10^3/uL (3.29-11.43) H 12/08/23 08:25 RBC 5.17 10^6/uL (3.85-5.65) 12/08/23 08:25 Hgb 17.40 g/dL (11.27-16.99) H 12/08/23 08:25 Hct 50.8 % (36-47) H 12/08/23 08:25 MCV 98.3 fl (85-98) H 12/08/23 08:25 MCH 33.7 pg (27-33) H 12/08/23 08:25 MCHC 34.3 g/dL (30-55) 12/08/23 08:25 RDW 12.6 % (12.1-15.1) 12/08/23 08:25 Plt Count 397 10^3/cmm (157-399) 12/08/23 08:25 MPV 9.9 fL (7.4-10.4) 12/08/23 08:25 Neut % (Auto) 77.1 % 12/08/23 08:25 Lymph % (Auto) 18.6 % 12/08/23 08:25 [place] % (Auto) 3.2 % 12/08/23 08:25 Eos % (Auto) 0.1 % 12/08/23 08:25 Baso % (Auto) 0.6 % 12/08/23 08:25 Neut # (Auto) 10.30 10^3/uL (1.8-7.7) H 12/08/23 08:25 Lymph # (Auto) 2.5 10^3/uL (0.8-4.8) 12/08/23 08:25 [place] # (Auto) 0.4 10^3/uL (0.2-0.9) 12/08/23 08:25 Eos # (Auto) 0.0 10^3/uL (0.0-0.8) 12/08/23 08:25 Baso # (Auto) 0.1 10^3/uL (0.0-0.1) 12/08/23 08:25 Nucleated RBC % (auto) 0 % 12/08/23 08:25 Nucleated RBCs # 0.0 /100WBC 12/08/23 08:25 Sodium 136 mmol/L (136-145) 12/08/23 08:25 Potassium 4.1 mmol/L (3.5-5.1) 12/08/23 08:25 Chloride 99 mmol/L (98-107) 12/08/23 08:25 Carbon Dioxide 20 mmol/L (22-29) L 12/08/23 08:25 Anion Gap 21.1 (5-19) H 12/08/23 08:25 BUN 9 mg/dL (6-20) 12/08/23 08:25 Creatinine 0.7 mg/dL (0.5-0.9) 12/08/23 08:25 GFR Calculation 92.7 mL/min (90-130) 12/08/23 08:25 Glucose 109 mg/dL (65-115) 12/08/23 08:25 Calculated Osmolality 281 mOsm/kg (285-295) L 12/08/23 08:25 Calcium 10.1 mg/dL (8.5-10.5) 12/08/23 08:25 Total Bilirubin 0.6 mg/dL (0.15-1.2) 12/08/23 08:25 AST 18 U/L (0-32) 12/08/23 08:25 ALT 23 U/L (0-33) 12/08/23 08:25 Alkaline Phosphatase 112 U/L (35-105) H 12/08/23 08:25 Total Protein 8.9 g/dL (6.6-8.7) H 12/08/23 08:25 Albumin 4.7 g/dL (3.5-5.2) 12/08/23 08:25 Globulin 4.2 g/dL (1.3-4.6) 12/08/23 08:25 Lipase 18 U/L (13-60) 12/08/23 08:25 Urine Color Yellow (Yellow) 12/08/23 08:33 Urine Appearance Clear (CLEAR) 12/08/23 08:33 Urine pH 8.5 (5-7) A 12/08/23 08:33 Ur Specific [place] 1.022 (1.005-1.030) 12/08/23 08:33 Urine Protein Trace (Negative) A 12/08/23 08:33 Urine Glucose (UA) Negative (Normal) 12/08/23 08:33 Urine Ketones Trace (Negative) 12/08/23 08:33 Urine Blood Negative (Negative) 12/08/23 08:33 Urine Nitrate Negative (Negative) 12/08/23 08:33 Urine Bilirubin Negative (Negative) 12/08/23 08:33 Urine Urobilinogen 0.2 mg/dL (Negative) 12/08/23 08:33 Ur Leukocyte Esterase Negative (Negative) 12/08/23 08:33 Urine RBC 6-10 /hpf (0-2) 12/08/23 08:33 Urine WBC 0-5 /hpf (0-5) 12/08/23 08:33 Ur Squamous Epith Cells 6-10 /hpf (0-5) 12/08/23 08:33 Amorphous Sediment Not Reportable 12/08/23 08:33 Urine Bacteria 1+ /hpf (NONE) H 12/08/23 08:33 Hyaline Casts 0.81 /lpf 12/08/23 08:33 Urine Yeast Trace /hpf 12/08/23 08:33 All radiology interpretation(s) finalized by discharge Discharge Plan Discharge Patient Disposition: Admitted As Inpatient Clinical Impression: Cholelithiasis, Biliary colic Condition: Stable Prescriptions: No Action lisinopril 10 mg tablet 10 mg PO DAILY Tums 500 500 mg calcium (1,250 mg) Tablet,Chewable 500 mg PO TID Referrals: Jose Waters MD [Primary Care Provider] - Coding Level of Care Code ED Shoe Sprayer for Chg Alaina
[2023-12-08 09:00] LABS: Basophils # 0.1 10^3/uL (0.0-0.1); Basophils % 0.6 %; Eosinophils % 0.1 %; Hematocrit 50.8 % (36-47); Lymphocytes # 2.5 10^3/uL (0.8-4.8); Lymphocytes % 18.6 %; Mean Corpuscular HGB Conc 34.3 g/dL (30-55); Mean Corpuscular Hemoglobin 33.7 pg (27-33); Mean Corpuscular Volume 98.3 fl (85-98); Mean Platelet Volume 9.9 fL (7.4-10.4); Monocytes # 0.4 10^3/uL (0.2-0.9); Monocytes % 3.2 %; Neutrophils % 77.1 %; Nucleated Red Blood Cells % 0 %; Platelet Count 397 10^3/cmm (157-399); Red Blood Count 5.17 10^6/uL (3.85-5.65); Red Cell Distribution Width 12.6 % (12.1-15.1); White Blood Count 13.36 10^3/uL (3.29-11.43)
[2023-12-08 09:06] LABS: Alanine Aminotransferase 23 U/L (0-33); Albumin Level 4.7 g/dL (3.5-5.2); Alkaline Phosphatase 112 U/L (35-105); Anion Gap 21.1 (5-19); Aspartate Amino Transferase 18 U/L (0-32); Blood Urea Nitrogen 9 mg/dL (6-20); Calcium 10.1 mg/dL (8.5-10.5); Carbon Dioxide 20 mmol/L (22-29); Chloride 99 mmol/L (98-107); Creatinine Clr Calc Pharmacy 115.0205; Globulin 4.2 g/dL (1.3-4.6); Glomerular Filtration Rate 92.7 mL/min (90-130); Glucose 109 mg/dL (65-115); Lipase 18 U/L (13-60); Osmolality Calculated 281 mOsm/kg (285-295); Potassium 4.1 mmol/L (3.5-5.1); Sodium 136 mmol/L (136-145); Total Bilirubin 0.6 mg/dL (0.15-1.2); Total Protein 8.9 g/dL (6.6-8.7)
[2023-12-08 09:18] LABS: Charge for UA Resulting for Rev
[2023-12-08 09:55] LABS: Bilirubin Urine Negative (Negative); Blood Urine Negative (Negative); Glucose Urine UA Negative (Normal); Ketones Urine Trace (Negative); Leukocyte Esterase Urine Negative (Negative); Nitrate Urine Negative (Negative); Protein Urine Trace (Negative); Specific Gravity, Urine 1.022 (1.005-1.030); Urine Appearance Clear (CLEAR); Urine Color Yellow (Yellow); Urobilinogen Urine 0.2 mg/dL (Negative); pH Urine 8.5 (5-7)
[2023-12-08 09:59] LABS: Bacteria Urine 1+ /hpf; Hyaline Casts Urine 0.81 /lpf; WBC Urine 0-5 /hpf (0-5)
[2023-12-08] MEDS: iohexol 350 mg/mL 500 mL Btl (per mL) IV (10:27)
[2023-12-08 10:31] LABS: Add Urine Culture? No
[2023-12-08] MEDS: metoclopramide 5 mg/mL SDV 2 mL 10 MG IVP (12:23)
[2023-12-08] MEDS: piperacillin-tazobactam 3.375 GM in sodium chloride 0.9% (plus) 50 ML IV ×2 (12:36→17:52)
--- NOTE | 2023-12-08 12:36 | PM.HP ---
Providers/Chief Complaint Admitting Physician: German Douglas MD Primary Care Provider: Jose Waters MD Chief Complaint: abd pain, N/V History of Present Illness Ursula Maxwell is a 38 year old female with history of alpha gal who presents to the hospital complaining of severe right upper quadrant abdominal pain nausea and vomiting since yesterday. She has had previous episodes of the right upper quadrant pain but none as severe as this 1. Workup was done in the ER negative for acute cholecystitis but since symptoms are severe it was consulted for evaluation of biliary colic Review of Systems General: Reports: 10 or more systems reviewed and unremarkable except in HPI and below Medications/Allergies Home Medications Medication Instructions Recorded Confirmed Last Taken Type lisinopril 10 mg tablet 10 mg PO DAILY 09/05/19 12/08/23 12/07/23 History calcium carbonate 500 mg PO TID 12/08/23 12/08/23 12/07/23 History Allergies Allergy/AdvReac Type Severity Reaction Status Date / Time Alpha-Gal Allergy ALGY-Anaphy Verified 12/08/23 08:21 (Thngnqfov-Oqdyf-5,3-Gala laxis PFSH Acute PFSH: Medical History Mood changes Controlled on Prozac managed by Dr. Waters. Hypertension Diagnosed in 2018 and she has been on lisinopril managed by her primary care provider Dr. Waters No pertinent past medical history Denies history of: Diabetes, asthma, seizures, DVT/PE. PCP: Dr. Waters Surgical History S/P vaginal hysterectomy 02/09/2020---laparoscopic assisted vaginal hysterectomy, left salpingectomy, cystoscopy For dyspareunia performed by Dr. Coreas at [facility] [place]. -Pathology showed inactive benign endometrium, myometrium with leiomyoma and adenomyosis, ectocervix with HPV changes and atypical glandular cells noted at transformation zone without adenocarcinoma. Benign left fallopian tube S/P right oophorectomy (~01/20/19) 01/20/2019---laparoscopic right salpingo-oophorectomy for chronic right lower quadrant pain and dyspareunia.performed by Dr. Coreas at [facility] [place]. No endometriosis or adhesions noted, uterus and bilateral tubes and ovaries appeared normal. -Pathology showed simple cortical cysts and corpus luteum and benign fallopian tube. Status post lumpectomy of both breasts (~06/2018) 06/2018---Bilateral breasts; benign. Performed by Dr. Fontana at the [facility]. S/P wisdom tooth extraction (~2003) Family History Grandfather Hypertension maternal and paternal Colon cancer paternal, diagnosed in his late 60s or early 70s Diabetes maternal Sarcoma maternal Grandmother Diabetes Paternal great grandmother Hypertension maternal and paternal Breast cancer paternal, diagnosed in her 60s Mother Hypertension Hyperlipidemia Father Hypertension Hyperlipidemia Family/Other Breast cancer Paternal great aunt paternal great grandmother Denies family history of Cervical cancer Ovarian cancer DVT (deep venous thrombosis) Pulmonary embolism Uterine cancer Stroke Social History Substance/Drug Use: never Vitals/I&O/Wt Last Vital Signs Temp 98.1 F 12/08/23 08:16 Pulse 92 12/08/23 08:38 BP 154/103 12/08/23 08:38 Pulse Ox 100 12/08/23 08:38 O2 Del Method Room Air 12/08/23 08:38 12/07/23 12/08/23 12/08/23 22:59 06:59 14:59 Intake Total 1000 / 1000 Balance 1000 / 1000 Weight last 48 hrs Weight 195 lb Physical Exam Narrative: General : Patient is well developed , no acute distress, oriented x3 Head : Normal cephalic, a-traumatic. Nose : Mucous membranes are without erythema. Lungs : Equal chest rise bilaterally, no use of accessory muscles, trachea is midline. CV : Rate and rhythm are normal. Abdomen : Soft, ND, there is tenderness in the right upper quadrant, no Porras sign, no g/r/m Extremities : No edema. Upper extremities are normal bilaterally. Back : non-tender to palpation, no CVA tenderness. Data 12/08/23 08:25 12/08/23 08:25 A&P Assessment and plan (1) Biliary colic: (2) Cholelithiasis: Plan 38-year-old female with biliary colic, does not meet criteria for acute cholecystitis, since symptoms are severe and she referred to admit her to the hospital for IV fluids IV antibiotics and pain control. In case of worsening white count or any changes in clinical status we might proceed with laparoscopic cholecystectomy during this admission, otherwise patient will be discharged on a short course of antibiotics and follow-up in the clinic to be scheduled as outpatient. Attestations Medical Necessity Statement*: Patient will require 24 to 48 hours of hospital stay for management of biliary colic Coding Level of Care Code 97200 Diagnoses Biliary colic K80.50 Cholelithiasis K80.20
[2023-12-08] MEDS: pantoprazole 40 mg SDV IVP (14:34)
[2023-12-08] MEDS: ketorolac 30 mg/mL INJ IVP ×2 (14:35→20:12)
[2023-12-08] MEDS: D5-NS 0.45% + KCL 20 mEq 20 MEQ/1,000 ML BAG 125 MEQ IV ×2 (14:35→20:23)
--- NOTE | 2023-12-08 16:07 | PC.NURSE ---
Non-admit of ONE time dose of IVP Hydralazine. New BP is 135/86.
[2023-12-09] VITALS (19 sets, daily range): BP systolic 101–137; BP diastolic 67–94; PULSE 81–104; RESP 16–20; TEMP 36.3–36.7; O2SAT 90–96
[2023-12-09] MEDS: piperacillin-tazobactam 3.375 GM in sodium chloride 0.9% (plus) 50 ML IV ×2 (02:14→10:56)
[2023-12-09] MEDS: pantoprazole 40 mg SDV IVP (02:15)
[2023-12-09] MEDS: ketorolac 30 mg/mL INJ IVP ×2 (02:15→08:11)
[2023-12-09] MEDS: morphine 4 mg/mL SDV 1 mL IVP ×2 (05:02→10:57)
[2023-12-09] MEDS: ondansetron 2 mg/ML SDV 2 mL 4 MG IVP ×3 (05:02→15:35)
[2023-12-09] MEDS: D5-NS 0.45% + KCL 20 mEq 20 MEQ/1,000 ML BAG 125 MEQ IV (06:18)
[2023-12-09 06:25] LABS: Basophils # 0.1 10^3/uL (0.0-0.1); Basophils % 0.6 %; Eosinophils # 0.2 10^3/uL (0.0-0.8); Eosinophils % 1.6 %; Hematocrit 37.2 % (36-47); Lymphocytes # 2.3 10^3/uL (0.8-4.8); Lymphocytes % 21.5 %; Mean Corpuscular HGB Conc 33.1 g/dL (30-55); Mean Corpuscular Volume 99.7 fl (85-98); Mean Platelet Volume 10.2 fL (7.4-10.4); Monocytes # 0.7 10^3/uL (0.2-0.9); Monocytes % 6.3 %; Neutrophils # 7.29 10^3/uL (1.8-7.7); Neutrophils % 69.7 %; Nucleated Red Blood Cells % 0 %; Platelet Count 279 10^3/cmm (157-399); Red Blood Count 3.73 10^6/uL (3.85-5.65); Red Cell Distribution Width 12.8 % (12.1-15.1); White Blood Count 10.46 10^3/uL (3.29-11.43)
[2023-12-09 06:47] LABS: Alanine Aminotransferase 133 U/L (0-33); Albumin Level 3.4 g/dL (3.5-5.2); Alkaline Phosphatase 115 U/L (35-105); Anion Gap 16.8 (5-19); Aspartate Amino Transferase 114 U/L (0-32); Blood Urea Nitrogen 4 mg/dL (6-20); Carbon Dioxide 20 mmol/L (22-29); Chloride 104 mmol/L (98-107); Creatinine Clr Calc Pharmacy 134.1906; Globulin 2.7 g/dL (1.3-4.6); Glomerular Filtration Rate 110.7 mL/min (90-130); Glucose 105 mg/dL (65-115); Lipase 24 U/L (13-60); Osmolality Calculated 281 mOsm/kg (285-295); Potassium 3.8 mmol/L (3.5-5.1); Sodium 137 mmol/L (136-145); Total Bilirubin 0.9 mg/dL (0.15-1.2); Total Protein 6.1 g/dL (6.6-8.7)
--- NOTE | 2023-12-09 07:47 | P.PN_ITS ---
Subjective 2 Subjective: Patient evaluated at bedside this morning, continues to complain of some right upper quadrant pain although it is better than yesterday. Was able to tolerate liquids yesterday this morning has not had anything to eat. According to the patient she had to request additional pain medication overnight. Vitals/I&O/Wt Last Vital Signs Temp 97.3 F L 12/09/23 07:30 Pulse 83 12/09/23 07:30 Resp 20 H 12/09/23 07:30 BP 137/91 12/09/23 07:30 Pulse Ox 94 12/09/23 07:30 O2 Del Method Room Air 12/09/23 07:30 12/08/23 12/09/23 12/09/23 22:59 06:59 14:59 Intake Total 1255 / 2305 1022.917 / 3327.917 Balance 1255 / 2305 1022.917 / 3327.917 Weight last 48 hrs Weight 195 lb Weight 195 lb Physical Exam 2 GI: OTHER: Abdomen is soft, there is some tenderness to palpation in the right upper quadrant with a negative Porras sign. Data 12/09/23 04:50 12/09/23 04:50 A&P Assessment and plan (1) Cholelithiasis: (2) Biliary colic: Plan This a 38-year-old female presenting with biliary colic who was admitted for conservative management, patient appears to continue to have significant pain and is very concerned of going home with his amount of pain we will have her return to the ED soon after, vital signs and laboratory workup are pretty unremarkable except for mild elevation of the LFTs which is expected in case of biliary colic. Due to patient's symptomatology and physical examination has seen mild improvement but has not completely resolved I think it will be appropriate to proceed with laparoscopic cholecystectomy during this admission. All the risk and benefits of the procedure were discussed with the patient including the risks of bleeding, infection, damage to surrounding structures including liver, duodenum, colon, risk of injuring bile ducts requiring extensive surgery at higher level of care facility, risk of retained stones, bile leak, bilioma, need for subtotal cholecystectomy, hernia and wound related complications, need to conversion to open procedure. Patient shows understanding and would like to proceed. -OR today for lap eli -Will plan for discharge after surgery Attestations 2 Medical Necessity Statement*: For discharge after surgery Coding Level of Care Code Acute Code for Chg Fwd Diagnoses Cholelithiasis K80.20 Biliary colic K80.50
[2023-12-09] MEDS: lisinopril 10 mg Tablet PO (08:11)
--- NOTE | 2023-12-09 11:40 | P.ANESASSM_ITS ---
Pre-Anesthetic Assessment Height/Weight: Height 1.63 m Weight 88.451 kg Temp Pulse Resp BP Pulse Ox O2 Del Method 97.3 F L 83 18 137/91 94 Room Air 12/09/23 07:30 12/09/23 07:30 12/09/23 10:57 12/09/23 07:30 12/09/23 07:30 12/09/23 07:30 Operation Date: 12/09/23 12:00 Proposed Procedures p Laparoscopic Cholecystectomy(Not Applicable) - German Douglas MD Familial anesthetic complications: None Was Beta Jarred taken within 24 hours: N/A Was Clonidine taken within 24 hours: N/A Last intake: Intake Last Liquid Date 12/08/23 Last Liquid Time 23:30 Last Solid Date 12/07/23 Last Solid Time 17:30 Social Alcohol and Tobacco Exam alert, oriented x 3, clear to auscultation bilaterally and regular rate & rhythm Airway Mallampati: Class III Dentition: full CV/HEM Hypertension Anesthetic Plan ASA status: 2 Anesthesia: General Other: Alpha Gal allergy Risk of > 500 ml blood loss (7ml/kg in children): No Medications/Allergies Home Medications Medication Instructions Recorded Confirmed Last Taken Type lisinopril 10 mg tablet 10 mg PO DAILY 09/05/19 12/08/23 12/07/23 History calcium carbonate 500 mg PO TID 12/08/23 12/08/23 12/07/23 History Allergies Allergy/AdvReac Type Severity Reaction Status Date / Time Alpha-Gal Allergy ALGY-Anaphy Verified 12/08/23 08:21 (Vzceamdyj-Tnuhy-8,3-Gala laxis Beef Containing Products Allergy ADR-Gastrointestinal Verified 12/09/23 05:10 Upset Current Medications Generic Name Dose Route Start Last Admin Trade Name Freq PRN Reason Stop Dose Admin Potassium Chloride/Dextrose/Sod Cl 20 meq in 1,000 mls @ 125 mls/hr 12/08/23 14:23 12/09/23 10:42 D5-Ns 0.45% + Kcl 20 Meq IV 0 mls/hr .Q8H LAURENCE Infusion Piperacillin Sod/Tazobactam 50 mls @ 12.5 mls/hr 12/08/23 18:00 12/09/23 10:56 Sod 3.375 gm/ Sodium Chloride IV 12.5 mls/hr Q8H LAURENCE Administration Protocol Ketorolac Tromethamine 30 mg 12/08/23 14:23 12/09/23 08:11 Ketorolac 30 Mg/Ml Inj IVP 12/13/23 14:22 30 mg Q6H LAURENCE Administration Lisinopril 10 mg 12/09/23 09:00 12/09/23 08:11 Lisinopril 10 Mg Tablet PO 10 mg DAILY LAURENCE Administration Morphine Sulfate 4 mg 12/08/23 14:23 12/09/23 10:57 Morphine 4 Mg/Ml Sdv 1 Ml IVP 4 mg Q4H PRN Administration SEVERE PAIN Ondansetron HCl 4 mg 12/08/23 14:23 12/09/23 10:56 Ondansetron 2 Mg/Ml Sdv 2 Ml IVP 4 mg Q6H PRN Administration NAUSEA AND VOMITING Pantoprazole Sodium 40 mg 12/08/23 14:23 12/09/23 02:15 Pantoprazole 40 Mg Sdv IVP 40 mg Q12H LAURENCE Administration [facility] Anesthesia Medical History Mood changes Controlled on Prozac managed by Dr. Waters. Hypertension Diagnosed in 2018 and she has been on lisinopril managed by her primary care provider Dr. Waters No pertinent past medical history Denies history of: Diabetes, asthma, seizures, DVT/PE. PCP: Dr. Waters Surgical History S/P vaginal hysterectomy 02/09/2020---laparoscopic assisted vaginal hysterectomy, left salpingectomy, cystoscopy For dyspareunia [place] [facility] [place]Pathology showed inactive benign endometrium, myometrium with leiomyoma and adenomyosis, ectocervix with HPV changes and atypical glandular cells noted at transformation zone without adenocarcinoma. Benign left fallopian tube S/P right oophorectomy (~01/20/19) 01/20/2019---laparoscopic right salpingo-oophorectomy for chronic right lower quadrant pain and dyspareunia.per[place] Dr. Coreas [place] [facility] No endometriosis or adhesions noted, uterus and bilateral tubes and ovaries appeared normal. -Pathology showed simple cortical cysts and corpus luteum and benign fallopian tube. Status post lumpectomy of both breasts (~06/2018) 06/2018---Bilateral breasts; benign. Performed by Dr[facility] Fontana at [facility]. S/P wisdom tooth extraction (~2003) Family History Grandfather Hypertension maternal and paternal Colon cancer paternal, diagnosed in his late 60s or early 70s Diabetes maternal Sarcoma maternal Grandmother Diabetes Paternal great grandmother Hypertension maternal and paternal Breast cancer paternal, diagnosed in her 60s Mother Hypertension Hyperlipidemia Father Hypertension Hyperlipidemia Family/Other Breast cancer Paternal great aunt paternal great grandmother Denies family history of Cervical cancer Ovarian cancer DVT (deep venous thrombosis) Pulmonary embolism Uterine cancer Stroke Social History Substance/Drug Use: never Data Anesthesia 12/09/23 04:50 12/09/23 04:50 Short CBC 12/08/23 12/09/23 Range/Units 08:25 04:50 WBC 13.36 H 10.46 (3.29-11.43) 10^3/uL Hgb 17.40 H 12.30 (11.27-16.99) g/dL Hct 50.8 H 37.2 (36-47) % MCV 98.3 H 99.7 H (85-98) fl Plt Count 397 279 (157-399) 10^3/cmm Neut % (Auto) 77.1 69.7 % Neut # (Auto) 10.30 H 7.29 (1.8-7.7) 10^3/uL BMP 12/08/23 12/09/23 08:25 04:50 Sodium 136 137 Potassium 4.1 3.8 Chloride 99 104 Carbon Dioxide 20 L 20 L BUN 9 4 L Creatinine 0.7 0.6 Glucose 109 105 Calcium 10.1 8.0 L Liver Function 12/08/23 12/09/23 Range/Units 08:25 04:50 Total Bilirubin 0.6 0.9 (0.15-1.2) mg/dL Direct Bilirubin 0.30 (0.00-0.30) mg/dL AST 18 114 H (0-32) U/L ALT 23 133 H (0-33) U/L Alkaline Phosphatase 112 H 115 H (35-105) U/L Albumin 4.7 3.4 L (3.5-5.2) g/dL Urine 12/08/23 Range/Units 08:33 Urine Color Yellow (Yellow) Urine Appearance Clear (CLEAR) Urine pH 8.5 A (5-7) Ur Specific [place] 1.022 (1.005-1.030) Urine Protein Trace A (Negative) Urine Glucose (UA) Negative (Normal) Urine Ketones Trace (Negative) Urine Nitrate Negative (Negative) Urine Bilirubin Negative (Negative) Ur Leukocyte Esterase Negative (Negative) Urine RBC 6-10 (0-2) /hpf Urine WBC 0-5 (0-5) /hpf Cardiac Studies: 2 No Data to Display
[2023-12-09] MEDS: scopolamine 1.5 Patch 1 PATCH TRANSDERMA (11:52)
[2023-12-09] MEDS: sodium chloride 0.9% 1,000 ML 30 ML IV (11:53)
[2023-12-09] MEDS: BUPivacaine 0.25% INJ 10 mL INJECTION (12:50)
[2023-12-09] MEDS: lidocaine-epi 1% 20 mL INJ INJECTION (12:51)
[2023-12-09] MEDS: HYDROmorphone 1 mg/mL INJ 1 mL 0.5 MG IVP ×2 (15:10→15:40)
--- NOTE | 2023-12-09 15:15 | PM.OP ---
Operative Report Date of procedure: December 09, 2023 Pre-op diagnosis: Biliary colic Post-op diagnosis: Acute on chronic cholecystitis Post-op findings: Extremely inflamed gallbladder, omental wrapping around the gallbladder, severe inflammation of the hepatocystic triangle making impossible dissection of the cystic duct from the common bile duct. Procedure done: Laparoscopic subtotal cholecystectomy Specimens removed/disposition: Gallbladder Surgeon: German Douglas MD Cost Control Supervisor: BEATRIZ OR Staff Estimated blood loss: 10 Brief History: 38-year-old female who presented to the hospital with an episode of biliary colic, due to persistent symptoms with side to proceed to or for laparoscopic cholecystectomy. All risk benefits were discussed and recommended my preop note Procedure: Patient was brought into the OR, she was placed in the supine position. General anesthesia was given. The abdomen was prepped and draped in the usual sterile fashion. Timeout was conducted. The abdomen was accessed in the left upper quadrant using an Optiview trocar measuring 5 mm. Initial pneumoperitoneum was obtained and laparoscopy showed no evidence of basilar injury during entry. Total millimeter trocar was placed in the supraumbilical position and direct visualization additional 5 mm trocars were placed in the epigastrium right upper quadrant right flank position under direct visualization. Evaluation of the liver with it was apparent that the patient was currently have an episode of acute cholecystitis with a likely chronic component as there was severe omental wrapping around the gallbladder and an omental adhesions to the liver, I carefully take down the lesions from the omentum to the liver using electrocautery, small amount of bleeding from the liver edge was noted and was cauterized. I then proceeded to carefully and peeled the gallbladder with blunt dissection from the top of the gallbladder to the area of the infundibulum, during dissection significant inflammation was noted and there were several thickened peritoneal runts. The tissue was inflamed and friable. Once the infundibulum of the gallbladder was exposed I retracted the gallbladder cephalad and the infundibulum in the inferolateral direction, with electrocautery I proceeded to create an opening the peritoneum anterior to the gallbladder and I carried this opening in the medial and lateral directions to the edges of the liver and then on the sides of the gallbladder to provide better exposure. There was severe inflammation of the hepatocystic triangle making almost impossible to dissection below the level of the infundibulum of the gallbladder. I then proceeded to individualize the cystic artery, I decided to transect the cystic artery very close to the gallbladder to allow for better exposure as a critical view of safety was impossible at this time. I double clipped the cystic artery proximally single clip distally and transected. After this I was able to dissect a window behind the infundibulum of the gallbladder and I started elevating the gallbladder from the liver bed carefully. During this process a small hole was made on the infundibulum of the gallbladder and bile leakage was noted, bile was aspirated and the area was suction irrigated. I was able to elevate almost 2/3 of the gallbladder from the liver bed and provide very good exposure making sure that the area that I was visualizing was the infundibulum of the gallbladder, at this point I decided to proceed with a subtotal cholecystectomy as the inflammation distal to the infundibulum was too severe to be able to provide adequate exposure. The epigastric 5 mm trocar was upsized to a 12 mm trocar. I transected the gallbladder with a 45 mm blue load endoGIA stapler at the level of the junction between the cystic duct and the infundibulum of the gallbladder, I took careful consideration transecting proximal to the area of the gallbladder perforation infundibulum to prevent future bile leak. I also took careful consideration of milking the gallbladder all the way up to preventing retained stones in the remanent of the gallbladder. Once the gallbladder was transected remove the gallbladder from the liver bed with electrocautery, no bile leak was noted from the liver bed no bleeding was noted and the clips on the staple line looked intact and in good position. I then proceeded to suction irrigated gallbladder with and right upper quadrant. The gallbladder was retrieved. The epigastric trocar site in an Endo Catch bag. The epigastric trocar site and the supraumbilical trocar site were closed under direct visualization using a Jovany-Waqar suture passer. I then removed the right upper quadrant right flank trocars under direct visualization I used a left upper quadrant trocar to evacuate the pneumoperitoneum and was subsequently removed. The wounds were closed in layers using #3-0 Vicryl for the subcutaneous tissue #4-0 Monocryl for the skin. Dermabond was applied. At the end of the procedure all counts were correct, the patient tolerated well the procedure and was transferred to the PACU in stable condition.
--- NOTE | 2023-12-09 15:27 | P.DS_ITS ---
Discharge Providers Date of Admission: 12/08/23 12:17 Date of Discharge: December 09, 2023 Attending Provider at Admission: German Douglas MD Attending Provider at Discharge: German Douglas MD Primary Care Provider: Jose Waters MD Diagnoses at Discharge Discharge Diagnosis (1) Cholelithiasis: Details from hospital stay: 38-year-old female who presents to the hospital with biliary colic, she also had a history of multiple episode of biliary colic in the past. Since symptoms were persistent we decided to proceed with a laparoscopic possible open cholecystectomy. Procedure was done without complications but due to severe inflammation we will proceed with a subtotal cholecystectomy. Patient tolerated well the procedure, she was sent home on the postoperative. And will return to the clinic in 2 weeks for follow-up. Status: Acute (2) Biliary colic: Status: Acute Reason for Visit Reason for Visit: abd pain, N/V Physical Exam GI: OTHER: Abdomen soft, appropriately tender, surgical incisions covered with dressing Discharge Data Studies Completed and Pending Completed Studies During Hospitalization Category Date Time Status CT abdomen pelvis w con* [id number] Stat Cat Scan 12/08/23 08:52 Completed US gall bladder [id number] Stat Ultrasound 12/08/23 08:52 Completed Pending at discharge Category Date Time Status Pathology: Surgical [PTH] Routine Pth 12/09/23 15:12 Received Radiology Impressions Abdomen/Pelvis CT 12/08/23 08:52 IMPRESSION: 1. Cholelithiasis. Stones are recently described also by ultrasound. No definite wall thickening or enhancement. 2. No common bile duct obstruction. 3. No renal obstruction. 4. Normal appendix. 5. Mild distal colonic diverticular burden. No acute diverticulitis. Gallbladder Ultrasound 12/08/23 08:52 IMPRESSION: 1. Numerous stones are noted within the gallbladder extending into the gallbladder neck. 2. No common bile duct obstruction. Laboratory Results WBC 10.46 10^3/uL (3.29-11.43) 12/09/23 04:50 RBC 3.73 10^6/uL (3.85-5.65) L 12/09/23 04:50 Hgb 12.30 g/dL (11.27-16.99) 12/09/23 04:50 Hct 37.2 % (36-47) 12/09/23 04:50 MCV 99.7 fl (85-98) H 12/09/23 04:50 MCH 33.0 pg (27-33) 12/09/23 04:50 MCHC 33.1 g/dL (30-55) 12/09/23 04:50 RDW 12.8 % (12.1-15.1) 12/09/23 04:50 Plt Count 279 10^3/cmm (157-399) 12/09/23 04:50 MPV 10.2 fL (7.4-10.4) 12/09/23 04:50 Neut % (Auto) 69.7 % 12/09/23 04:50 Lymph % (Auto) 21.5 % 12/09/23 04:50 [place] % (Auto) 6.3 % 12/09/23 04:50 Eos % (Auto) 1.6 % 12/09/23 04:50 Baso % (Auto) 0.6 % 12/09/23 04:50 Neut # (Auto) 7.29 10^3/uL (1.8-7.7) 12/09/23 04:50 Lymph # (Auto) 2.3 10^3/uL (0.8-4.8) 12/09/23 04:50 [place] # (Auto) 0.7 10^3/uL (0.2-0.9) 12/09/23 04:50 Eos # (Auto) 0.2 10^3/uL (0.0-0.8) 12/09/23 04:50 Baso # (Auto) 0.1 10^3/uL (0.0-0.1) 12/09/23 04:50 Nucleated RBC % (auto) 0 % 12/09/23 04:50 Nucleated RBCs # 0.0 /100WBC 12/09/23 04:50 Sodium 137 mmol/L (136-145) 12/09/23 04:50 Potassium 3.8 mmol/L (3.5-5.1) 12/09/23 04:50 Chloride 104 mmol/L (98-107) 12/09/23 04:50 Carbon Dioxide 20 mmol/L (22-29) L 12/09/23 04:50 Anion Gap 16.8 (5-19) 12/09/23 04:50 BUN 4 mg/dL (6-20) L 12/09/23 04:50 Creatinine 0.6 mg/dL (0.5-0.9) 12/09/23 04:50 GFR Calculation 110.7 mL/min (90-130) 12/09/23 04:50 Glucose 105 mg/dL (65-115) 12/09/23 04:50 Calculated Osmolality 281 mOsm/kg (285-295) L 12/09/23 04:50 Calcium 8.0 mg/dL (8.5-10.5) L 12/09/23 04:50 Total Bilirubin 0.9 mg/dL (0.15-1.2) 12/09/23 04:50 Direct Bilirubin 0.30 mg/dL (0.00-0.30) 12/09/23 04:50 AST 114 U/L (0-32) H 12/09/23 04:50 ALT 133 U/L (0-33) H 12/09/23 04:50 Alkaline Phosphatase 115 U/L (35-105) H 12/09/23 04:50 Total Protein 6.1 g/dL (6.6-8.7) L D 12/09/23 04:50 Albumin 3.4 g/dL (3.5-5.2) L 12/09/23 04:50 Globulin 2.7 g/dL (1.3-4.6) 12/09/23 04:50 Lipase 24 U/L (13-60) 12/09/23 04:50 Urine Color Yellow (Yellow) 12/08/23 08:33 Urine Appearance Clear (CLEAR) 12/08/23 08:33 Urine pH 8.5 (5-7) A 12/08/23 08:33 Ur Specific [place] 1.022 (1.005-1.030) 12/08/23 08:33 Urine Protein Trace (Negative) A 12/08/23 08:33 Urine Glucose (UA) Negative (Normal) 12/08/23 08:33 Urine Ketones Trace (Negative) 12/08/23 08:33 Urine Blood Negative (Negative) 12/08/23 08:33 Urine Nitrate Negative (Negative) 12/08/23 08:33 Urine Bilirubin Negative (Negative) 12/08/23 08:33 Urine Urobilinogen 0.2 mg/dL (Negative) 12/08/23 08:33 Ur Leukocyte Esterase Negative (Negative) 12/08/23 08:33 Urine RBC 6-10 /hpf (0-2) 12/08/23 08:33 Urine WBC 0-5 /hpf (0-5) 12/08/23 08:33 Ur Squamous Epith Cells 6-10 /hpf (0-5) 12/08/23 08:33 Amorphous Sediment Not Reportable 12/08/23 08:33 Urine Bacteria 1+ /hpf (NONE) H 12/08/23 08:33 Hyaline Casts 0.81 /lpf 12/08/23 08:33 Urine Yeast Trace /hpf 12/08/23 08:33 Vitals Last Vital Signs Temp 97.4 F L 12/09/23 15:06 Pulse 92 12/09/23 15:21 Resp 16 12/09/23 15:21 BP 123/71 12/09/23 15:21 Pulse Ox 92 12/09/23 15:21 O2 Del Method Simple Mask 12/09/23 15:21 O2 Flow Rate 5 12/09/23 15:21 Discharge Plan Discharge Patient Disposition: Home Condition: Stable Prescriptions: New oxycodone 5 mg/5 mL solution 5 mg PO Q6H PRN (Reason: pain) Qty: 100 0RF pantoprazole 40 mg tablet,delayed release (DR/EC) 40 mg PO DAILY Qty: 14 0RF amoxicillin-pot clavulanate 875-125 mg tablet 1 tab PO BID 7 Days Qty: 14 0RF meloxicam 7.5 mg tablet 7.5 mg PO DAILY Qty: 7 0RF ondansetron HCl 8 mg tablet 8 mg PO Q8H PRN (Reason: nausea and vomiting) 5 Days Qty: 10 0RF polyethylene glycol 3350 [Miralax] 17 gram powder in packet 17 g PO DAILY 4 Days Qty: 4 0RF Continued lisinopril 10 mg tablet 10 mg PO DAILY Discontinued Tums 500 500 mg calcium (1,250 mg) Tablet,Chewable 500 mg PO TID Discharge Orders: Discharge Order (Routine); Ordered 12/09/23 Ordered By: German Douglas Referrals: German Douglas MD [Physician] - (2 weeks) Jose Waters MD [Primary Care Provider] - 12/17/23 12:00 pm Discharge Diet: Advance as tolerated Discharge Activity: Resume usual activity Patient Instructions: Acute Wound Care (DC), Laparoscopic Cholecystectomy (GEN), Opioid Safety, Post Anesthesia Care Activity Restrictions/Additional Instructions: Please walk as much as possible this will improve your recovery. Please return to the hospital you have fever, chills, yellowing of your skin, severe abdominal pain that is getting worse over time or purulence from your wounds. You can shower starting the day after tomorrow, let soap and water run over your wounds and then pat dry. Discharge Attestations Time Spent in Discharge Care*: less than 30 min Quality Metrics Clinical Quality Measures [ No reported AMI, CVA or VTE this stay] Coding Level of Care Code Acute Code for Chg Fwd Diagnoses Cholelithiasis K80.20 Biliary colic K80.50
--- NOTE | 2023-12-09 15:55 | ANE.PACU2 ---
Inpatient post-anesthesia follow up: Airway intact: Yes Vital signs: Temperature 97.4 F Pulse Rate 89 Respiratory Rate 16 Blood Pressure 101/68 Pulse Oximetry 91 Oxygen Delivery Me thod Room Air Oxygen Flow Rate 5 Fraction of Inspir ed Oxygen Hydration adequate: Yes Nausea and vomiting: No Pain level: 1 Mental status: Baseline
[2023-12-09] MEDS: ondansetron 4 MG Tablet 8 MG PO (17:19)
[2023-12-09] MEDS: oxyCODONE 5 mg IR Tab/Cap 10 MG PO (17:19)
== END 2023-12-09 18:16 | disposition home or self-care (01) ==
LOC: ER 11:52 → MEDSURG 12-09 07:30
PROVIDERS: Admitting Provider Surgery; Emergency Provider Family Medicine; PCP Family Medicine; Visit Provider Surgery
PROC: 0FT44ZZ Resection of Gallbladder, Percutaneous Endoscopic Approach (ICD-10-PCS; CPT 47562; principal; 2023-12-09 12:00)
DX: K80.10 Calculus of gallbladder with chronic cholecystitis without obstruction (principal); I10 Essential (primary) hypertension
CPT/HCPCS: 47562; 36415; 74177; 76705; 80048; 80053; 80076; 81003; 81015; 83690; 85025; 88304; 96374; 96375; 96376; 99285; G0378; J1100; J1170; J1885; J2001; J2250; J2270; J2405; J2470; J2543; J2704; J2765; J3010; J3490; J7030; Q0162; Q9967

== ENCOUNTER → 2023-12-23 14:12 | Outpatient (BNVA) | payer OTHER, SELFPAY | PROVIDERS: PCP Family Medicine; Visit Provider Surgery | DX: R10.9 Unspecified abdominal pain (principal); G89.18 Other acute postprocedural pain; R11.0 Nausea | CPT/HCPCS: 36415; 80048; 80076; 83690; 85025 ==

== ENCOUNTER 2023-12-29 14:16 | Outpatient (CLI) | payer OTHER, SELFPAY ==
[2023-12-29] MEDS: iohexol 350 mg/mL 500 mL Btl (per mL) PO (14:25)
--- NOTE | 2023-12-29 15:15 | CTR_ITS ---
PROCEDURE INFORMATION: Exam: CT Abdomen And Pelvis With Contrast Exam date and time: 12/29/2023 3:20 PM Age: 38 years old Clinical indication: Abdominal pain; Generalized; Prior surgery; Surgery date: <1 month; Patient HX: Post op cholecystectomy x 4 weeks ago. PT states continued pain in ruq and nausea; Additional info: Post op abdominal pain, iv/po TECHNIQUE: Imaging protocol: Computed tomography of the abdomen and pelvis with contrast. Radiation optimization: All CT scans at this facility use at least one of these dose optimization techniques: automated exposure control; mA and/or kV adjustment per patient size (includes targeted exams where dose is matched to clinical indication); or iterative reconstruction. Contrast material: OMNI 350; Contrast volume: 100 ml; Contrast route: INTRAVENOUS (IV); COMPARISON: CT abdomen pelvis w con* [id number] 12/08/2023 10:22 AM RADIATION DOSE METRICS: Total DLP (mGy-cm): 675.14 FINDINGS: Liver: Fatty liver. Gallbladder and biliary ducts: Status post cholecystectomy. Small fluid collection noted in the gallbladder fossa, nonspecific, measuring 2 x 1.6 cm. No significant inflammation surrounding this collection. Pancreas: No ductal dilation. Spleen: No splenomegaly. Adrenal glands: Normal. No mass. Kidneys and ureters: No hydronephrosis. Stomach and bowel: Colonic diverticulosis without findings diverticulitis. No dilated bowel loops. No high-grade obstruction. Appendix: No evidence of appendicitis. Intraperitoneal space: No free air. No significant fluid collection. Vasculature: No abdominal aortic aneurysm. Lymph nodes: No enlarged lymph nodes. Urinary bladder: Unremarkable as visualized. Reproductive: Status post hysterectomy. Bones/joints: Unremarkable. No acute fracture. Soft tissues: Unremarkable. CT/CT abdomen pelvis w con* [id number] IMPRESSION: Status post cholecystectomy. Small fluid collection noted in the gallbladder fossa, nonspecific, measuring 2 x 1.6 cm. No significant inflammation surrounding this collection. Findings may represent a postoperative seroma, resolving hematoma, or small biloma. Continue follow-up if symptoms persist
[2023-12-29] MEDS: iohexol 350 mg/mL 500 mL Btl (per mL) IV (15:25)
== END 2023-12-29 14:17 | disposition home or self-care (01) ==
LOC: RAD 14:18
PROVIDERS: PCP Family Medicine; Visit Provider Surgery
DX: R10.84 Generalized abdominal pain (principal); R10.11 Right upper quadrant pain; G89.18 Other acute postprocedural pain; Z90.49 Acquired absence of other specified parts of digestive tract; K76.0 Fatty (change of) liver, not elsewhere classified; Z90.710 Acquired absence of both cervix and uterus; R18.8 Other ascites
CPT/HCPCS: 36415; 74177; 80048; 80076; 83690; 85025; Q9967

== ENCOUNTER 2023-12-30 08:58 | Outpatient (CLI) | payer OTHER, SELFPAY ==
[2023-12-30 09:51] LABS: Basophils # 0.1 10^3/uL (0.0-0.1); Eosinophils # 0.1 10^3/uL (0.0-0.8); Eosinophils % 1.5 %; Lymphocytes # 2.5 10^3/uL (0.8-4.8); Lymphocytes % 26.6 %; Mean Corpuscular Hemoglobin 32.7 pg (27-33); Mean Corpuscular Volume 99.3 fl (85-98); Mean Platelet Volume 9.8 fL (7.4-10.4); Monocytes # 0.5 10^3/uL (0.2-0.9); Monocytes % 5.4 %; Neutrophils # 6.15 10^3/uL (1.8-7.7); Neutrophils % 65.2 %; Nucleated Red Blood Cells % 0 %; Platelet Count 367 10^3/cmm (157-399); Red Blood Count 4.43 10^6/uL (3.85-5.65); Red Cell Distribution Width 11.9 % (12.1-15.1); White Blood Count 9.43 10^3/uL (3.29-11.43)
[2023-12-30 10:08] LABS: Alanine Aminotransferase 27 U/L (0-33); Albumin Level 4.2 g/dL (3.5-5.2); Alkaline Phosphatase 108 U/L (35-105); Anion Gap 13.4 (5-19); Aspartate Amino Transferase 22 U/L (0-32); Blood Urea Nitrogen 11 mg/dL (6-20); Calcium 9.3 mg/dL (8.5-10.5); Carbon Dioxide 25 mmol/L (22-29); Chloride 101 mmol/L (98-107); Gamma Glutamyl Transferase 52 U/L (5-36); Glomerular Filtration Rate 110.7 mL/min (90-130); Glucose 157 mg/dL (65-115); Osmolality Calculated 283 mOsm/kg (285-295); Potassium 4.4 mmol/L (3.5-5.1); Sodium 135 mmol/L (136-145); Total Bilirubin 0.4 mg/dL (0.15-1.2); Total Protein 7.2 g/dL (6.6-8.7)
== END 2023-12-30 08:59 | disposition home or self-care (01) ==
LOC: LAB 08:59
PROVIDERS: PCP Family Medicine; Visit Provider Surgery
DX: Z51.81 Encounter for therapeutic drug level monitoring (principal); Z79.1 Long term (current) use of non-steroidal anti-inflammatories (NSAID); R10.13 Epigastric pain
CPT/HCPCS: 36415; 80048; 80076; 82977; 85025